=== PATIENT | male | born 1955 | race Caucasian/White ===

== ENCOUNTER 2017-02-16 00:25 | Inpatient (IN) | payer OTHER ==
[2017-02-16] VITALS (10 sets, daily range): BP systolic 84–114; BP diastolic 44–72; PULSE 56–85; RESP 15–18; O2SAT 97–100
[~2017-02-16] VITALS: Ht 180.3 cm; Wt 73.6 kg
--- NOTE | 2017-02-16 00:46 | ED.REPORT ---
HPI-General Illness Date of Service Feb 16, 2017 ED Provider: Dr. Didier Bolden The patient is a 61 year old male with a history of Crohns, [place] x2, 4x CABG, who presents to the ED via EMS complaining of dizziness. Pt was discharged yesterday from [facility], after admission for dehydration. He had an ileostomy placed on January 26, after emergency surgery for a perforation and a complete colectomy.. Associated symptoms include low blood pressure, shaking, chills, and weakness. He denies abdominal pain, fever, vomiting, diarrhea, and any other symptoms. Nursing Notes Stated Complaint: DIZZINESS/ DEHYDRATION Chief Complaint: General Complaint Nursing Notes Reviewed: Yes Allergies: Coded Allergies: levofloxacin (Verified Allergy, Mild, "pass out", 02/16/17) metronidazole (Verified Allergy, Unknown, "pass out", 02/16/17) Scheduled Cholestyramine (Cholestyramine Packet) 4 Gm Packet 4 GM PO BID Diphenoxylate/Atropine (Diphenoxylate-Atrop 2.5-0.025) 2.5 Mg Tablet 2.5 MG PO Q6 Fructooligosaccharides/Polydex (Hyfiber with Fos Liquid) 12 Gram/30 Ml Liquid 12 GM PO BID General Time Seen by MD: 00:46 Chief Complaint Dizziness Hx Obtained From: Patient Arrived By: Walk-in Sudden in Onset?: Yes Onset Occurred: Just prior to arrival Symptom Duration: Since onset Associated with: Reports: Dizziness, Weakness Pertinent Negative: Pt denies other symptoms Recent Healthcare: Recent doctor visit, Recent hospitalization, Previous surgery Similar Sx Previous: Yes Past Medical History Past Medical History 2x IN Past Surgical History iliostomy placement 4x CABG Smoking History Unknown if Ever Smoker Ambulatory Status Independent Review of Systems low blood pressure Full Review of Systems Constitutional: Reports: Chills, Weakness - generalized, Denies: Fever GI: Denies: Abdominal pain, Diarrhea, Vomiting Neurologic: Reports: Dizziness, Shaking, Weakness Complete sys rev & neg: except as marked. Physical Exam Vital Signs Vital Signs Date Time Temp Pulse Resp B/P Pulse Ox O2 Delivery O2 Flow Rate FiO2 02/16/17 02:33 72 15 84/49 99 Room Air 02/16/17 00:40 81 15 100/56 100 Room Air Initial VS: Reviewed General/Constitutional: Awake, Alert, Cooperative Head / Eyes: Atraumatic, Normocephalic, PERRL ENT: Atraumatic, Mucous membranes moist Abdomen: Atraumatic, Non-tender Upper Extremities Upper Extremity / MS: Atraumatic, Full range of motion, No deformity Wrist / Hand: Atraumatic, Full range of motion, No deformity Lower Extremity / Pelvis / MS: Atraumatic, Full range of motion, No deformity Ankle / Foot: Atraumatic, Full range of motion, No deformity Skin: Atraumatic, No rash Neurologic: Oriented X3, Speech NL Interpretation & Diagnostics Lab Results Interpretation Result Diagram: 02/16/17 0050 02/16/17 0050 Test 02/16/17 00:50 White Blood Count 10.6th/mm3 (3.8-10.1) Red Blood Count 3.22mil/mm3 (4.40-5.80) Hemoglobin 12.0g/dL (13.8-17.2) Hematocrit 33.7% (41.0-50.0) Mean Corpuscular Volume 104.7fL (81-100) Mean Corpuscular Hemoglobin 37.3pg (27.0-35.0) Mean Corpuscular Hemoglobin Concent 35.6% (32.0-37.0) Red Cell Distribution Width 16.8% (12.3-15.4) Platelet Count 337bil/L (150-400) Neutrophils (%) (Auto) 68.3% (40-74) Lymphocytes (%) (Auto) 21.0% (14-46) Monocytes (%) (Auto) 9.2% (4-12) Eosinophils (%) (Auto) 1.0% (0-5) Basophils (%) (Auto) 0.2% (0-3) Prothrombin Time 10.3sec (8.1-12.5) Prothromb Time International Ratio 0.96ratio Activated Partial Thromboplast Time 22.1sec (22.8-33.0) Sodium Level 133mEq/L (134-144) Potassium Level 3.9mEq/L (3.5-5.2) Chloride Level 102mEq/L (97-108) Carbon Dioxide Level 14mmol/L (18-29) Blood Urea Nitrogen 14mg/dL (6-24) Creatinine 1.06mg/dL (0.76-1.27) Estimat Glomerular Filtration Rate 76mL/min (>59) Glucose Level 110mg/dL (60-99) Lactic Acid Level 0.2mmol/L (0.4-2.0) Calcium Level 9.1mg/dL (8.5-10.1) Phosphorus Level 2.8mg/dL (2.5-4.9) Magnesium Level 1.6mg/dL (1.6-2.6) Total Bilirubin 0.3mg/dL (0.0-1.2) Aspartate Amino Transf (AST/SGOT) 14U/L (0-50) Alanine Aminotransferase (ALT/SGPT) 13U/L (0-44) Alkaline Phosphatase 88U/L (25-160) Total Protein 6.9g/dL (6.4-8.4) Albumin 4.0g/dL (3.4-5.0) Lipase 28U/L (13-60) Procalcitonin 0.11ng/mL (0.00-0.08) Hold [place]burn Top Tube Received (Received) Lab Results Interpretation: LABS: WBC 10.6 Re-Eval/Medical Decision Consultation : Referral / Consult Name: Desmond Jon MD Consulted With: Hospitalist Call Returned at: 02:18 Service Plumber: Agrees with eval, Agrees with plan Note: Case discussed. Dr. Zaldivar accepts admit. Counseled Regarding: Diagnosis, Lab results, Need for admission Discharge & Departure Primary Impression: Dehydration Additional Impressions: High output ileostomy Crohns disease Disposition: ADMITTED TO HOSPITAL Discharge Condition All VS Reviewed: Yes Condition: Stable Referrals: [facility] Scribe Attestation Portion of this note were transcribed by Jennifer Lowery. I, Dr. Bolden, personally performed the history, physical exam, and medical decision-making: I reviewed and confirmed the accuracy for the information in the transcribed note. Signed by: nathan Garza, 02/16/17 0500 copies to: [facility] Didier Bolden MD Feb 16, 2017 00:46 Jennifer Lowery Feb 16, 2017 00:50
[2017-02-16] MEDS ORDERED: 0.9% Sodium Chloride 1,000 ML IV SCH (00:50)
[2017-02-16 01:04] LABS: BASOPHILS % (AUTO) 0.2 % (0-3); MONOCYTES % (AUTO) 9.2 % (4-12); Mean Corpuscular Hemoglobin 37.3 pg (27.0-35.0); Mean Corpuscular Volume 104.7 fL (81-100); NEUTROPHILS % (AUTO) 68.3 % (40-74); Platelet Count 337 bil/L (150-400)
[2017-02-16 01:29] LABS: INR 0.96 ratio
[2017-02-16] MEDS ORDERED: 0.9% Sodium Chloride 1,000 ML IV ONE (01:38)
[2017-02-16 01:43] LABS: Magnesium 1.6 mg/dL (1.6-2.6)
[2017-02-16] MEDS: 0.9% Sodium Chloride 1,000 ML IV SCH ×3 (02:21→20:56)
[2017-02-16] MEDS ORDERED: Alum-Mag Hydrox-Simeth 30 mL Suspension PO PRN (02:25)
[2017-02-16] MEDS ORDERED: Polyethylene Glycol (PEG) 17 Gm Powder PO PRN (02:25)
[2017-02-16] MEDS ORDERED: Ondansetron 2 mg/mL 2 mL Inj IVPUSH PRN (02:25)
[2017-02-16 02:42] LABS: Phosphorus 2.8 mg/dL (2.5-4.9)
[2017-02-16] MEDS ORDERED: QUE9 PO (03:29)
[2017-02-16] MEDS ORDERED: LORazepam 1 mg Tablet PO ONE (03:30)
[2017-02-16] MEDS ORDERED: LOM PO (03:31)
[2017-02-16] MEDS ORDERED: [UNRECOGNIZED DRUG - CODE] PO (03:32)
--- NOTE | 2017-02-16 03:38 | PCM.HPMED ---
Subjective Date of Service Feb 16, 2017 Primary Provider: Admitting Physician: Primary Care Physician: Rylie Attending Physician: Chief Complaint: Dehydration History of Present Illness: David Longo is a 61-year-old man with past medical history significant for Crohn's disease for the last 25 years now status post ileostomy, coronary artery disease with MIs and 4 vessel bypass and stenting who presented to the [facility] emergency department today via EMS due to a near syncopal episode. Patient was just at [facility] for high output ileostomy and subsequent dehydration for 11 days. Patient was discharged yesterday and felt at the time that he was not quite ready for discharge. Patient arrived home today and was feeling fatigued and thirsty but attempted to hydrate with Pedialyte. This evening the patient was changing his ostomy bag and had a vasovagal episode as he is not used to viewing his ostomy. Patient normally changes his ostomy while laying down but today she attempted to change it while looking in the mirror and became very hot, diaphoretic and weak. Patient sat down and was able to replace his ostomy device asked his mother to call EMS. He denied any chest pain, chest pressure, shortness of breath, nausea, vomiting , fever or chills. In the emergency department the patient's blood pressure was noted to be 100/ 56. He was given 2 L of normal saline. Review of Systems: A comprehensive review of systems was conducted with the patient and found to be negative except as above in the History of Present Illness. Allergies Coded Allergies: levofloxacin (Verified Allergy, Mild, "pass out", 02/16/17) metronidazole (Verified Allergy, Unknown, "pass out", 02/16/17) Home Medications Cholestyramine 4 g twice a day Lomotil 2 tabs by mouth 4 times a day Fiber packet one twice a day Guar gum pack Imodium 4 times a day Atorvastatin 40 mg nightly Clopidogrel 75 mg daily Lisinopril 10 mg daily Lorazepam 2 mg at bedtime Mercaptopurine 100 mg every day Metoprolol XL 25 mg daily PMH CAD MO x2 with four-vessel CABG which then required subsequent stenting in the graft vessels in 2013. Crohn's disease for last 25 years. Patient had a significant worsening of his disease 2 years ago which was complicated by multiple recurrent abscesses and ultimately end ileostomy. Surgical History Ileostomy placement Four-vessel CABG Family History Father had a CVA which was the cause of his . Social History Hx Alcohol Use: No Hx Substance Use: No Hx Tobacco Use: No Smoking Status: Unknown if Ever Smoker Additional Information Patient underwent financial ruin after divorce with his of 35 years. This occurred 4 years ago. The cause of this event caused patient's health to significantly decline which was first materialized as a myocardial infarction. And then a worsening of the patient's Crohn's disease which had previously been in remission. Exam Vital Signs Vital Sign - Last Date Time Temp Pulse Resp B/P Pulse Ox O2 Delivery O2 Flow Rate FiO2 02/16/17 00:40 81 15 100/56 100 Room Air Intake and Output 02/15/17 02/15/17 02/16/17 Cumulative From/Thru 15:00 23:00 07:00 02/16/17 00:40 - 02/16/17 01:18 Intake Total 1000 ml 1000 ml Balance 1000 ml 1000 ml Intake IV Total 1000 ml 1000 ml Exam General: No acute distress, well-developed, well-nourished, appropriately interactive HEENT: Normocephalic, atraumatic. External ears without defect. Pupils equal, round, and reactive to light and accommodation. Anicteric sclerae, moist conjunctivae, and no lid lag. Oropharynx free of erythema and cobble stoning with moist mucosa. Neck: Supple with full range of motion. No jugular venous distension. No lymphadenopathy or thyromegaly. Cardiovascular: Regular rate and rhythm with no murmurs, rubs, or gallops appreciated Pulmonary: Clear to auscultation bilaterally with no crackles, wheezes, or rhonchi. Normal respiratory effort with no use of accessory muscles. Abdomen: Bowel tones present. Soft, nontender, nondistended. Right lower quadrant ostomy with liquid output in a nearly full bag. No hepatosplenomegaly or masses appreciated. Extremities: No clubbing, cyanosis, edema, or lymphadenopathy appreciated. Skin: Normal temperature, turgor, and texture; no rash, ulcers, or subcutaneous nodules appreciated. Neurological: Cranial nerves grossly intact. Normal muscle strength, tone, and bulk. Reflexes, coordination, and sensory function within normal limits. No known gait impairment. Psychiatric: Appears depressed however is quite pleasant and cooperative Alert and oriented to person, place, and time. Lab and Diagnostics Result Diagram: 02/16/174902/16/170 Assessment & Plan David Longo is a 61-year-old man with past medical history significant for Crohn's disease for the last 25 years now status post ileostomy, coronary artery disease with MIs and 4 vessel bypass and stenting who presented to the [facility] emergency department today via EMS due to a near syncopal episode. Near syncopal episode, present on admission, active -Multifactorial, due to vasovagal response as well as orthostasis from patient' s severe dehydration due to high output ostomy -Fall risk -We will order orthostatic blood pressure measurements High anion gap metabolic acidosis and concomitant non-anion gap metabolic acidosis, present on admission, active -Likely secondary to GI losses -Continue with aggressive IV fluid hydration -Dietary consultation obtained -We will restart patient's antidiarrheal medications High output ileostomy, present on admission, active -Patient had ileostomy placed on January 27. Anticipate that output will reduce over time. -Continue aggressive IV fluid resuscitation -Dietary consultation -Antidiarrheal medications reordered -Continue patient's fiber supplementation Macrocytic anemia, present on admission, active -With an elevated RDW likely due to multiple vitamin deficiencies given patient' s Crohn's disease -Continue to monitor -Consider iron panel and B12 and folate if the patient has not had this done recently. Chronic issues, present on admission, stable: Coronary artery disease status post CABG and stenting -Continue patient's outpatient medications Anxiety/insomnia -Continue outpatient lorazepam Social support -Consider contacting our fretted instruments inspector to visit the patient. CODE STATUS: Full code Patient is admitted under observation status with expected length of stay less than 2 midnights due to severity of presenting symptoms, risk of adverse event, and complexity of treatment plan. VTE Prophylaxis: Sub-Q Heparin (Unfractionated) Resuscitation Status: CPR: Attempt Resuscitation Attending Statement The patient was seen and examined together with Dr. Washington on 02/16 and I agree with the history, exam and plan as outlined in the note above. Alma Washington DO Feb 16, 2017 02:24 Desmond Jon MD Feb 16, 2017 06:11
[2017-02-16] MEDS: DiphenOXYlate-Atropine 2.5 mg-0.025 mg Tablet PO SCH ×4 (05:29→20:55)
[2017-02-16 05:41] LABS: APPEARANCE,URINE CLEAR (CLEAR,HAZY); COLOR,URINE YELLOW (YELLOW); OCCULT BLOOD,URINE NEGATIVE (NEGATIVE); UROBILINOGEN,URINE NORMAL (NORMAL)
[2017-02-16] MEDS ORDERED: GUAR1POW PO (05:54)
[2017-02-16] MEDS ORDERED: LOPE1LIQ80 PO (05:55)
[2017-02-16] MEDS ORDERED: LIP40 PO (05:57)
[2017-02-16] MEDS ORDERED: LISI10TA PO (05:58)
[2017-02-16] MEDS ORDERED: CLOP75TA28 PO (05:58)
[2017-02-16] MEDS ORDERED: LORA2TAB PO (06:02)
[2017-02-16] MEDS ORDERED: MERC50TA PO (06:03)
[2017-02-16] MEDS ORDERED: METO25TA99 PO (06:05)
--- NOTE | 2017-02-16 06:42 | NUR ---
Pt rec'd from ED at 0230. Denies pain/discomfort, ileostomy producing liquid green stool. VSS, bed rest for hypotension. Urine collected and sent for analysis. Med rec completed. Sinus 80's no ectopy, denies SOB, maintains 98% on room air. L PIVx2 patent, no s/s infiltration or phlebitis noted. Pt slept between 3-6:45 today. Care continues.
[2017-02-16 08:14] LABS: BASOPHILS % (AUTO) 0.5 % (0-3); MONOCYTES % (AUTO) 8.5 % (4-12); Mean Corpuscular Hemoglobin 37.4 pg (27.0-35.0); Mean Corpuscular Volume 105.9 fL (81-100); NEUTROPHILS % (AUTO) 55.6 % (40-74); Platelet Count 282 bil/L (150-400)
[2017-02-16] MEDS: Heparin 5,000 Unit/mL Inj SUBQ SCH ×4 (08:30→20:58)
[2017-02-16 09:10] LABS: Magnesium 1.6 mg/dL (1.6-2.6); Phosphorus 3.4 mg/dL (2.5-4.9)
--- NOTE | 2017-02-16 10:09 | NUR ---
Social Work: Initial Assessment/Multidisciplinary Rounds D: Per EMR review, pt is a 61 year old male admitted for dehydration, high output ileostomy. Pt is [employer] insurance with no LTC or VA benefits. PCP is Katie Burris MD. NOK is Shayna Longo, mother, . Advanced directives not completed- pt declined info. Readmit score not entered at this time. Pt discussed in multidisciplinary rounds. Pt was discharged from [facility] on 02/14 home with [facility] for RN management of his Ileostomy. Pt anticipated to discharge back home with resumed HH through [facility] for RN care. Capacity for self care discussed. No concerns identified at this time. PRIVATE INVESTIGATOR met with the patient at bedside. Sw role explained, contact info and discharge planning checklist provided. Pt states that he lives in a single story home in [place] with ramp access. Pt confirms that he was referred to [facility] but they had not yet come to see him at home. He would like to continue with this service after discharge. Preference is for [facility]. Pt states he has never had skilled rehab and does not drive. Pt states he has no concerns about discharge home once medically stable. His mother will transport. t/c to [facility] with [facility] to notify of pt's admission; PRIVATE INVESTIGATOR has requested resumption of care orders and will provide access to [facility] once order is received from MD. A: Pt who is I at baseline. P: Anticipate pt to discharge home via POV and resumed [facility] for RN care. ALIA Cook Addendum: 02/16/17 at 1016 by ELLI HAMILTON Amended: Links added.
[2017-02-16] MEDS: Cholestyramine Resin Powder 4 Gm Packet PO SCH ×2 (10:11→23:12)
--- NOTE | 2017-02-16 11:28 | NUR ---
Case Management: Clarification of patient status: observation per MD order. Jorge Montero RN
--- NOTE | 2017-02-16 16:21 | PCM.PNMED ---
Subjective Date of Service Feb 16, 2017 Subjective Assessment: Patient laying in bed on exam. Appears fatigued however not somnolent. We discussed at length the patient's medical history and our plans for his stay here in hospital. Events Overnight: No acute events overnight. ROS: Complains of generalized fatigue, mild abdominal pain at surgery incision sites. Denies fever/chills, nausea/vomiting, headache, weakness, chest pain, shortness of breath, increased swelling in hands or feet. Exam Vital Signs Vital Sign - Last Date Time Temp Pulse Resp B/P Pulse Ox O2 Delivery O2 Flow Rate FiO2 02/16/17 12:00 37.1 61 16 91/51 98 Room Air Intake and Output 02/15/17 02/15/17 02/16/17 Cumulative From/Thru 15:00 23:00 07:00 02/16/17 00:40 - 02/16/17 06:35 Intake Total 1366 ml 1366 ml Output Total 900 ml 900 ml Balance 466 ml 466 ml Intake Oral 100 ml 100 ml IV Total 1266 ml 1266 ml Output Urine Total 275 ml 275 ml Stool Total 625 ml 625 ml Exam General: No acute distress, well-developed, well-nourished HEENT: Normocephalic, atraumatic. External ears without defect. Pupils equal, round, and reactive to light and accommodation. Anicteric sclerae, moist conjunctivae. Cardiovascular: Regular rate and rhythm with no murmurs, rubs, or gallops appreciated Pulmonary: Clear to auscultation bilaterally with no crackles, wheezes, or rhonchi. Normal respiratory effort with no use of accessory muscles. Abdomen: Bowel tones decreased. Soft, nontender, nondistended. Ostomy present- ostomy bag half-full with gas and green liquid fluid. Extremities: No clubbing, cyanosis, edema Skin: Normal temperature, turgor, and texture; no rash, ulcers, or subcutaneous nodules appreciated. Neurological: Cranial nerves grossly intact. Reflexes, coordination, and sensory function within normal limits. Normal muscle strength, tone, and bulk. Psychiatric: Normal mood and affect. Alert and oriented to person, place, and time IVs and Medications IV Fluids 2 L normal saline Medications Reviewed: Medications were reviewed in detail Lab and Diagnostics Result Diagram: 02/16/17 1235 02/16/17 0746 Microbiology Blood cultures pending 2 Assessment & Plan David Longo is a 61-year-old man with past medical history significant for Crohn's disease for the last 25 years now status post ileostomy (January 27, 2017), coronary artery disease with MIs and 4 vessel bypass and stenting who presented to the [facility] emergency department today via EMS due to a near syncopal episode. Near syncopal episode, present on admission, active -Multifactorial, due to vasovagal response as well as orthostasis from patient' s severe dehydration due to high output ostomy -Fall risk - Blood pressures remain low despite aggressive fluid therapy, continue to monitor High anion gap metabolic acidosis and concomitant non-anion gap metabolic acidosis, present on admission, active -Likely secondary to GI losses -Continue with aggressive IV fluid hydration -Dietary consultation obtained -Antidiarrheal medications restarted High output ileostomy, present on admission, active -Patient had ileostomy placed on January 27. Anticipate that output will reduce over time. -Continue aggressive IV fluid resuscitation -Dietary consultation -Antidiarrheal medications reordered -Continue patient's fiber supplementation Macrocytic anemia, present on admission, active - With an elevated RDW likely due to multiple vitamin deficiencies given patient 's Crohn's disease - Hemoglobin initially 12.0, dropped to 9.5 over a period of 8 hours. H&H was redrawn 4 hours later and blood counts continue to decline to 9.2. - If blood loss continues consider CT abdomen - If hemoglobin <8.00 consider transfusion PRBCs - Continue to monitor - B12 and folate panels ordered pending Chronic issues, present on admission, stable: Coronary artery disease status post CABG and stenting -Continue patient's outpatient medications Anxiety/insomnia -Continue outpatient lorazepam Social support -Consider contacting our carton lettering machine operator to visit the patient. CODE STATUS: Full code Dispo: Patient will remain in hospital until fluid status improves, I expect this to be anywhere between 1-3 days Pain Evaluation: Adequate Pain Control VTE Prophylaxis: Sub-Q Heparin (Unfractionated) Resuscitation Status: CPR: Attempt Resuscitation Attending Statement The patient was seen and examined together with Dr. Stevens on 02/16/17 and I agree with the history, exam and plan as outlined in the note above. Lew Stevens DO Feb 16, 2017 16:21 Rita Arboleda DO Feb 17, 2017 14:41
--- NOTE | 2017-02-16 17:47 | NUR ---
spiritual care: provider referral brief conversational visit. pt said he had been quite sleepy. described medical events and his sense of resiliency as personal trait. awaiting dinner tray; appeared calm/comfortable.
--- NOTE | 2017-02-16 18:46 | NUR ---
Hypotension/Ileostomy Patient a/o x 3, denies pain, nausea or sob. SBP 90's, MD aware no new orders this shift. Patient remained on bedrest, declined getting oob this shift. Sleeping intermittently throughout the shift. Tele SR. Ileostomy putting out soft liq green stool. Judy diet well.
[2017-02-17] VITALS (7 sets, daily range): BP systolic 103–127; BP diastolic 66–75; PULSE 56–73; RESP 16–18; O2SAT 96–98
[2017-02-17] MEDS ORDERED: LORazepam 2 mg Tablet PO ONE
[2017-02-17] MEDS: LORazepam 2 mg Tablet PO SCH ×2 (00:05→21:02)
[2017-02-17] MEDS: DiphenOXYlate-Atropine 2.5 mg-0.025 mg Tablet PO SCH ×4 (03:53→21:02)
[2017-02-17 07:03] LABS: BASOPHILS % (AUTO) 0.3 % (0-3); EOSINOPHILS % (AUTO) 1.6 % (0-5); MONOCYTES % (AUTO) 9.2 % (4-12); Mean Corpuscular Volume 107.3 fL (81-100); NEUTROPHILS % (AUTO) 59.8 % (40-74); Platelet Count 268 bil/L (150-400)
--- NOTE | 2017-02-17 07:57 | NUR ---
GI High Output Ileostomy putting out light green loose stool in large amounts. 1050cc charted. Per ILLUMINATOR, the last time emptied stool was more liquid than before. Pt urinating per urinal, NS fluids continue, SBP 90s-100s. Pt refused Heparin. Requested Ativan to sleep d/t insomnia, notified and ordered this. Lab was asked not to come until after 0700 per pt request. Care clustered to promote sleep.
[2017-02-17] MEDS: 0.9% Sodium Chloride 1,000 ML IV SCH ×2 (08:33→17:53)
[2017-02-17] MEDS: Cholestyramine Resin Powder 4 Gm Packet PO SCH ×2 (08:33→19:50)
[2017-02-17] MEDS: Heparin 5,000 Unit/mL Inj SUBQ SCH ×3 (08:41→16:30)
--- NOTE | 2017-02-17 18:18 | NUR ---
Activity/Ileostomy: Encouraged patient to increase activity and sit in chair for meals. Patient declined and stated he wasn't up to it and would attempt to sit up in chair for for meals tomorrow. Total ileostomy output for day shift = 500 of soft bermeo/green stool.
--- NOTE | 2017-02-17 19:36 | PCM.PNMED ---
Subjective Date of Service Feb 17, 2017 Subjective Assessment: Patient lying in bed on physical exam. I had a long discussion today with patient and his mother who was in the room. Patient described frustrations with his current situation, including feeling helpless and discouraged at having to stay so much time in the hospital. He states that he was initially unwilling to go through the ileostomy procedure and had hoped for some complication such that he would not be subjected to the difficulties of post procedural life. He describes great frustration with trying to fill prescribed medications especially ostomy bags. He asked me if Spence was a " with dignity state" stating that he did not wish to continue medical treatment, except that he knows this would bring great sadness to his mother. He is not currently suicidal, however he is obviously depressed and frustrated with his current situation. Both him and his mother expressed concerns about early discharge. We discussed the possibility of SNF placement post hospital stay, however in his current depressed state he was not excited about this option. Events Overnight: No acute events overnight. ROS: Complains of weakness, fatigue. Denies fever/chills, nausea/vomiting, headache, weakness, abdominal pain, chest pain, shortness of breath, increased swelling in hands or feet. Exam Vital Signs Vital Sign - Last Date Time Temp Pulse Resp B/P Pulse Ox O2 Delivery O2 Flow Rate FiO2 02/17/17 16:52 36.9 63 18 123/73 96 Room Air Intake and Output 02/16/17 02/16/17 02/17/17 Cumulative From/Thru 15:00 23:00 07:00 02/16/17 00:40 - 02/17/17 05:28 Intake Total 2046 ml 650 ml 4062 ml Output Total 1325 ml 2050 ml 4275 ml Balance 721 ml -1400 ml -213 ml Intake Oral 872 ml 650 ml 1622 ml IV Total 1174 ml 2440 ml Output Urine Total 1050 ml 1000 ml 2325 ml Stool Total 275 ml 1050 ml 1950 ml Exam General: No acute distress, well-developed, well-nourished HEENT: Normocephalic, atraumatic. External ears without defect. Pupils equal, round, and reactive to light and accommodation. Anicteric sclerae, moist conjunctivae. Cardiovascular: Regular rate and rhythm with no murmurs, rubs, or gallops appreciated Pulmonary: Clear to auscultation bilaterally with no crackles, wheezes, or rhonchi. Normal respiratory effort with no use of accessory muscles. Abdomen: Bowel tones present. Soft, nontender, nondistended. Extremities: No clubbing, cyanosis, edema Skin: Normal temperature, turgor, and texture; no rash, ulcers, or subcutaneous nodules appreciated. Neurological: Cranial nerves grossly intact. Reflexes, coordination, and sensory function within normal limits. Normal muscle strength, tone, and bulk. Psychiatric: Normal mood and affect. Alert and oriented to person, place, and time IVs and Medications IV Fluids General: No acute distress, well-developed, well-nourished HEENT: Normocephalic, atraumatic. External ears without defect. Pupils equal, round, and reactive to light and accommodation. Anicteric sclerae, moist conjunctivae. Cardiovascular: Regular rate and rhythm with no murmurs, rubs, or gallops appreciated Pulmonary: Clear to auscultation bilaterally with no crackles, wheezes, or rhonchi. Normal respiratory effort with no use of accessory muscles. Abdomen: Bowel tones decreased. Soft, nontender, nondistended. Ostomy present- ostomy bag half-full with gas and green liquid fluid. Extremities: No clubbing, cyanosis, edema Skin: Normal temperature, turgor, and texture; no rash, ulcers, or subcutaneous nodules appreciated. Neurological: Cranial nerves grossly intact. Reflexes, coordination, and sensory function within normal limits. Normal muscle strength, tone, and bulk. Psychiatric: Normal mood and affect. Alert and oriented to person, place, and time Medications Reviewed: Medications were reviewed in detail Medications High-risk medications include: Lorazepam Lab and Diagnostics Result Diagram: 02/17/17 0650 02/17/17 0650 Microbiology Blood cultures 2 no growth after 24 hours Assessment & Plan David Longo is a 61-year-old man with past medical history significant for Crohn's disease for the last 25 years now status post ileostomy (January 27, 2017), coronary artery disease with MIs and 4 vessel bypass and stenting who presented to the [facility] emergency department on 02/16 via EMS due to a near syncopal episode. Near syncopal episode, present on admission, active - Multifactorial, due to vasovagal response as well as orthostasis from patient' s severe dehydration due to high output ostomy - Fall risk - Blood pressures remain low despite aggressive fluid therapy, continue to monitor - Ostomy putting out brown liquid 02/17 as compared to 02/16, green liquid, and previous to that yellow liquid. High anion gap metabolic acidosis and concomitant non-anion gap metabolic acidosis, present on admission, active -Likely secondary to GI losses -Continue with aggressive IV fluid hydration -Dietary consultation obtained -Antidiarrheal medications restarted High output ileostomy, present on admission, active -Patient had ileostomy placed on January 27. Anticipate that output will reduce over time, and stools will become better formed with antidiarrheal medication. -Continue aggressive IV fluid resuscitation -Dietary consultation -Antidiarrheal medications reordered -Continue patient's fiber supplementation Macrocytic anemia, present on admission, active - With an elevated RDW possibly due to multiple vitamin deficiencies given patient's Crohn's disease - Hemoglobin initially 12.0, dropped to 9.5 over a period of 8 hours. H&H has remained stable since that time. Likely dilutional. - Continue to monitor - B12 and folate panels show normal levels of vitamin B12 and folate. Chronic issues, present on admission, stable: Coronary artery disease status post CABG and stenting -Continue patient's outpatient medications Anxiety/insomnia -Continue outpatient lorazepam Social support -Printed Circuit Board Assembler contacted to visit the patient, however patient does not want spiritual consults at this time. - I suggested to the patient that he would benefit from outpatient psych, for his depression to work through multiple issues which have occurred in the last 4.5 years. It appears that many of his current ailments can be attributed to his emotional distress over these recent events. At the moment he is unwilling to participate in any outpatient evaluation by psych, however he did state that he would think about it. Of note: I had a long discussion today with patient and his mother who was in the room. Patient described frustrations with his current situation, including feeling helpless and discouraged at having to stay so much time in the hospital. He states that he was initially unwilling to go through the ileostomy procedure and had hoped for some complication such that he would not be subjected to the difficulties of post procedural life. He describes great frustration with trying to fill prescribed medications especially ostomy bags. He asked me if Spence was a " with dignity state" stating that he did not wish to continue medical treatment, except that he knows this would bring great sadness to his mother. He is not currently suicidal, however he is obviously depressed and frustrated with his current situation. Both him and his mother expressed concerns about early discharge. We discussed the possibility of SNF placement post hospital stay, however and his current depressed state he was not excited about this option. CODE STATUS: Full code Dispo: Patient will remain in hospital until fluid status improves, I expect this to be anywhere between 1-3 days VTE Prophylaxis: Sub-Q Heparin (Unfractionated) Resuscitation Status: CPR: Attempt Resuscitation Time spent 60 minutes Attending Statement The patient was seen and examined together with Dr. Stevens on 02/17/17 and I agree with the history, exam and plan as outlined in the note above. Lew Stevens DO Feb 17, 2017 19:36 Rita Arboleda DO Feb 18, 2017 11:09
[2017-02-18] VITALS (10 sets, daily range): BP systolic 105–123; BP diastolic 63–81; PULSE 52–69; RESP 14–20; O2SAT 96–99
[2017-02-18] MEDS: Heparin 5,000 Unit/mL Inj SUBQ SCH ×3 (00:30→15:31)
[2017-02-18] MEDS: DiphenOXYlate-Atropine 2.5 mg-0.025 mg Tablet PO SCH ×4 (02:42→21:28)
[2017-02-18] MEDS: 0.9% Sodium Chloride 1,000 ML IV SCH ×3 (02:42→23:17)
--- NOTE | 2017-02-18 06:44 | NUR ---
Rest/Ileostomy Patient requesting to be allowed to sleep for longer stretches overnight. Care clustered to encourage better sleep. Approximately 350 soft greenish stool output in ileostomy.
[2017-02-18 07:38] LABS: Mean Corpuscular Hemoglobin 36.8 pg (27.0-35.0); Mean Corpuscular Volume 105.6 fL (81-100)
[2017-02-18] MEDS: Cholestyramine Resin Powder 4 Gm Packet PO SCH ×2 (07:48→21:28)
[2017-02-18] MEDS: Lidocaine Topical 5% Patch TOPICAL SCH (12:09)
--- NOTE | 2017-02-18 14:14 | PCM.PNMED ---
Subjective Date of Service Feb 18, 2017 Subjective Patient states that he feels well this AM. Ostomy continues significant output decreased in magnitude and more formed than previously. Otherwise states that he is well, denies chest pain, SOB, nausea, or vomiting. No significant overnight events. Comprehensive ROS negative except as listed above. Exam Vital Signs Vital Sign - Last Date Time Temp Pulse Resp B/P Pulse Ox O2 Delivery O2 Flow Rate FiO2 02/18/17 12:42 36.6 59 20 110/70 98 Room Air Intake and Output 02/17/17 02/17/17 02/18/17 Cumulative From/Thru 15:00 23:00 07:00 02/16/17 00:40 - 02/18/17 06:47 Intake Total 1305 ml 1300 ml 1575 ml 8242 ml Output Total 2300 ml 2800 ml 9375 ml Balance 1305 ml -1000 ml -1225 ml -1133 ml Intake Oral 740 ml 318 ml 2680 ml IV Total 1305 ml 560 ml 1257 ml 5562 ml Output Urine Total 1800 ml 2450 ml 6575 ml Stool Total 500 ml 350 ml 2800 ml Emesis 0 ml 0 ml Exam Gen: A/O x3 pleasant cooperative gentleman in NAD Neck: Supple, non tender, no thyromegaly, no JVD HEENT: PERRL, EOMI, no scleral icterus, no conjunctival pallor CV: RRR, no murmurs rubs or gallops Resp: Lungs CTA BL, no wheezing rales or rhonchi Abd: Soft, ostomy with a moderate amount of brown semi-formed stool Extr: No clubbing cyanosis or edema Neuro: CN 2-12 grossly intact, no focal neurologic deficit Psych: Pleasant and appropriate mood and affect. IVs and Medications IV Fluids NS @ 100 ml hr Medications Reviewed: Medications were reviewed in detail Lab and Diagnostics Item Value Date Time Red Blood Count 2.85 mil/mm3 L 02/18/17 0725 Mean Corpuscular Volume 105.6 fL H 02/18/17 0725 Mean Corpuscular Hemoglobin 36.8 pg H 02/18/17 0725 Mean Corpuscular Hemoglobin Concent 34.9 % 02/18/17 0725 Red Cell Distribution Width 16.3 % H 02/18/17 0725 Estimat Glomerular Filtration Rate 108 mL/min 02/18/17 0725 Calcium Level 8.6 mg/dL 02/18/17 07 Total Bilirubin 0.3 mg/dL 02/18/17 0725 Aspartate Amino Transf (AST/SGOT) 14 U/L 02/18/17 07 Alanine Aminotransferase (ALT/SGPT) 10 U/L 02/18/17 0725 Total Protein 5.3 g/dL L 02/18/17 0725 Alkaline Phosphatase 74 U/L 02/18/17 0725 Albumin 3.3 g/dL L 02/18/17 07 Result Diagram: 02/18/1772402/18/17 07 Microbiology Blood cultures 2 no growth after 24 hours Assessment & Plan David Longo is a 61-year-old man with past medical history significant for Crohn's disease for the last 25 years now status post ileostomy (January 27, 2017), coronary artery disease with MIs and 4 vessel bypass and stenting who presented to the [facility] emergency department on 02/16 via EMS due to a near syncopal episode. Near syncopal episode, present on admission,Improved - Multifactorial, due to vasovagal response as well as orthostasis from patient' s severe dehydration due to high output ostomy - Fall risk - Ostomy putting out brown liquid 02/17 as compared to 02/16, green liquid, and previous to that yellow liquid. Returned to brown 02/18 High anion gap metabolic acidosis and concomitant non-anion gap metabolic acidosis, present on admission, Improved -Likely secondary to GI losses -Continue with aggressive IV fluid hydration -Dietary consultation obtained -Antidiarrheal medications restarted High output ileostomy, present on admission, active -Patient had ileostomy placed on January 27. Anticipate that output will reduce over time, and stools will become better formed with antidiarrheal medication. -Continue aggressive IV fluid resuscitation -Dietary consultation -Antidiarrheal medications reordered -Continue patient's fiber supplementation Macrocytic anemia, present on admission, active - With an elevated RDW possibly due to multiple vitamin deficiencies given patient's Crohn's disease - Hemoglobin initially 12.0, dropped to 9.5 over a period of 8 hours. H&H has remained stable since that time. Likely dilutional. - Continue to monitor - B12 and folate panels show normal levels of vitamin B12 and folate. Chronic issues, present on admission, stable: Coronary artery disease status post CABG and stenting -Continue patient's outpatient medications Anxiety/insomnia -Continue outpatient lorazepam Social support -[employer] Architect contacted to visit the patient, however patient does not want spiritual consults at this time. - I suggested to the patient that he would benefit from outpatient psych, for his depression to work through multiple issues which have occurred in the last 4.5 years. It appears that many of his current ailments can be attributed to his emotional distress over these recent events. At the moment he is unwilling to participate in any outpatient evaluation by psych, however he did state that he would think about it. Of note: Goals of care were discussed with the patient and his mother who was in the room. Patient described frustrations with his current situation, including feeling helpless and discouraged at having to stay so much time in the hospital. He states that he was initially unwilling to go through the ileostomy procedure and had hoped for some complication such that he would not be subjected to the difficulties of post procedural life. He describes great frustration with trying to fill prescribed medications especially ostomy bags. He asked me if Spence was a " with dignity state" stating that he did not wish to continue medical treatment, except that he knows this would bring great sadness to his mother. He is not currently suicidal, however he is obviously depressed and frustrated with his current situation. Both him and his mother expressed concerns about early discharge. We discussed the possibility of SNF placement post hospital stay, however and his current depressed state he was not excited about this option. CODE STATUS: Full code Dispo: Patient will remain in hospital until fluid status improves, I expect this to be anywhere between 1-3 days Pain Evaluation: Adequate Pain Control VTE Prophylaxis: Sub-Q Heparin (Unfractionated) Resuscitation Status: CPR: Attempt Resuscitation Urban Gabriel DO Feb 18, 2017 14:14
[2017-02-18] MEDS: LORazepam 2 mg Tablet PO SCH (21:28)
--- NOTE | 2017-02-19 00:12 | NUR ---
orthostatics lying:hr=68, me=882/76 sitting :hr=78, qo=850/98 lying:hr=96, rd=270/100
--- NOTE | 2017-02-19 00:18 | NUR ---
output, pt voiding well per urinal, yellow uop, pt able to take po fluids ok, md aware of no ivf per report but still on sep, md aware of pt's uop/orthostatics/po intake and output per illeostomy, pt still putting out mod to large amount per ileostomy, ivf continued at 100ml/hr, sba at bedside, pt feels slightly unsteady on his feet, bp stable, tele- sr, hr 60-90, occ pac, denies cp denies n /v, hyperactive bt's, ileostomy bag in place, surgical sites well approximated, denies sob, ls-clear, ra sats upper 90's, see assessment charting, report given to next rn at 0015,
[2017-02-19] MEDS: Heparin 5,000 Unit/mL Inj SUBQ SCH ×4 (00:30→21:52)
[2017-02-19 03:53] VITALS: BP 109/73; PULSE 56; RESP 20; O2SAT 98
[2017-02-19] MEDS: DiphenOXYlate-Atropine 2.5 mg-0.025 mg Tablet PO SCH ×4 (03:54→22:05)
[2017-02-19 07:48] LABS: BASOPHILS % (AUTO) 0.4 % (0-3); EOSINOPHILS % (AUTO) 2.8 % (0-5); MONOCYTES % (AUTO) 7.6 % (4-12); Mean Corpuscular Hemoglobin 36.9 pg (27.0-35.0); Mean Corpuscular Volume 104.7 fL (81-100); NEUTROPHILS % (AUTO) 56.7 % (40-74); Platelet Count 262 bil/L (150-400)
[2017-02-19 08:03] LABS: Magnesium 1.7 mg/dL (1.6-2.6)
[2017-02-19] MEDS: 0.9% Sodium Chloride 1,000 ML IV SCH ×3 (09:15→21:46)
[2017-02-19] MEDS: Cholestyramine Resin Powder 4 Gm Packet PO SCH ×2 (09:18→21:51)
[2017-02-19] MEDS: Lidocaine Topical 5% Patch TOPICAL SCH (09:18)
[2017-02-19 10:00] VITALS: PULSE 52
[2017-02-19 12:27] VITALS: BP 112/70; PULSE 64; RESP 20; O2SAT 98
--- NOTE | 2017-02-19 16:26 | NUR ---
Social Work Note: Continued Discharge Planning Data& Assessment: Pt had questions about Home Health Status. Denise spoke with Bryanna from [facility] who explained they were not able to provide services to pt and are not currently open with pt, and will not be able to open with pt. Sw spoke with who explained pt needs are unclear at this time. Pt still recieving IV fluids. [employer] insurance information provided to pt mother per her request. Pt and pt mother deny any other needs at this time. SW to continue to follow. Plan: Anticipated discharge home with another home health company vs. outpt wound care clinic follow up. Pt and pt mother deny any other needs at this time. SW to continue to follow. ALIA Mcduffie
[2017-02-19 16:35] VITALS: BP 135/87; PULSE 63; RESP 18; O2SAT 98
--- NOTE | 2017-02-19 18:08 | NUR ---
Output Iliostomy output thus far on day shift: 280mL brown loose/chunky.
--- NOTE | 2017-02-19 18:10 | PCM.CHPMED ---
Subjective Date of Service: Feb 19, 2017 Provider requesting consult: Lew Stevens DO Primary Physician: Admitting Physician: Desmond Jon MD Primary Care Physician: Rylie Attending Physician: Rita Arboleda DO Chief Complaint: Chief Complaint: High output from ostomy causing fainting spell History of Present Illness: David Longo is a 61-year-old male with past medical history significant for Crohn's disease status post recent diverting ileostomy, coronary artery disease with MIs and 4 vessel bypass and stenting who presented to [facility] ED due to a near syncopal episode. Prior to this hospitalization patient has been hospitalized at [facility] 2 times over the last month. Initial hospitalization was for a perforated bowel secondary to abscess that he believes is due to his Crohn's disease. This is questionable as the patient also indicates that his Crohn's disease has been in remission over the last 8-10 years. It may be more likely that his abscess and perforated bowel or secondary to diverticulitis. At this time it is not imperative to know the inciting event and we are working on obtaining records. Subsequent to the perforation patient had a diverting ileostomy completed on 01/27/[address] Eber Brown ([phone]). Patient has had high output from ostomy consequently causing readmission to [facility] shortly after discharge. During his second hospitalization he was found to have renal failure with an elevated potassium in low magnesium and required urgent dialysis. Patient was then discharged on 02/15/[address] the [facility] so that his mother could care for him. Shortly after arrival at his mother's house he began to feel fatigued, thirsty, and lightheaded and attempted to hydrate with Pedialyte. Later that evening he was changed and his ostomy and had a vasovagal episode which prompted his presentation to the ED. Of note, the patient states that the plan, per Dr. Brown, is for contrast enema in approximately 3 weeks to evaluate for any further leakage and determine if he is appropriate for takedown of ostomy. Upon discharge from [facility] for high output ileostomy he was told to take cholestyramine 4 g twice a day, Lomotil 4 times a day, Imodium 4 times a day, and Guar gum twice a day. Prior to ileostomy and bowel perforation patient was maintained on 6-mercaptopurine for the last 8-10 years and was told he was in remission from his Crohn's. He had been following with Dr. Kelly, GI, but due to insurance he recently switched to physician in [facility]. His primary care providers Dr. Darryl Johnson whose phone number is [phone]. Today the patient is sitting up in bed and denies any dizziness or lightheadedness. He does feel weak and continually thirsty. Ostomy had a total of 650 mL out yesterday and today a subsequent 370 mL. Review of Systems: Comprehensive review of systems was conducted with the patient and found to be negative except as noted above in HPI. PMH Past Medical History CAD [place] x2 with four-vessel CABG which then required subsequent stenting in the graft vessels in 2013. Crohn's disease for last 25 years. Patient had a significant worsening of his disease 2 years ago which was complicated by multiple recurrent abscesses and ultimately end ileostomy. Surgical History Ileostomy placement Four-vessel CABG Home Medications Cholestyramine 4 g twice a day Lomotil 2 tabs by mouth 4 times a day Fiber packet one twice a day Guar gum pack Imodium 4 times a day Atorvastatin 40 mg nightly Clopidogrel 75 mg daily Lisinopril 10 mg daily Lorazepam 2 mg at bedtime Mercaptopurine 100 mg every day Metoprolol XL 25 mg daily Allergies: Coded Allergies: levofloxacin (Verified Allergy, Mild, "pass out", 02/16/17) metronidazole (Verified Allergy, Unknown, "pass out", 02/16/17) Family History Family History Father had a CVA which was the cause of his . Social History Hx Alcohol Use: NoAlcoholic Drinks Per Day: 0Hx Substance Use: Yes (marijuana )Hx Tobacco Use: No Smoking Status: Unknown if Ever Smoker Exam Vital Signs Vital Sign - Last Date Time Temp Pulse Resp B/P Pulse Ox O2 Delivery O2 Flow Rate FiO2 02/19/17 16:35 37.3 63 18 135/87 98 Room Air Intake and Output 02/18/17 02/18/17 02/19/17 Cumulative From/Thru 15:00 23:00 07:00 02/16/17 00:40 - 02/19/17 06:34 Intake Total 1090 ml 1361 ml 69189 ml Output Total 1450 ml 2770 ml 67114 ml Balance -360 ml -1409 ml -2902 ml Intake Oral 640 ml 350 ml 3670 ml IV Total 450 ml 1011 ml 7023 ml Output Urine Total 1150 ml 2400 ml 27329 ml Stool Total 300 ml 370 ml 3470 ml Emesis 0 ml # Voids 6 6 General: Alert, Oriented X3, No Acute Distress Head: Normal Eyes: PERRLA, Scleral Anicteric Nose: Mucous Membr Moist/Horatio Mouth: Mucous Membr Moist/Horatio Neck: Supple Chest & Lungs: Clear to auscultation & percussion Cardiovascular: Regular Rate/Rhythm, No Murmurs/Rubs/Gallops Abdomen: Non-tender, Non-distended, Normoactive bowel tones, Ostomy ( presenting right lower quadrant with brown, liquid stool) Musculoskeletal: Unremarkable Extremities: No cyanosis/clubbing/edma bilat Neurological: Grossly Neurologically Intact, Cranial Nerves 2-12 Intact Lab and Diagnostics Result Diagram: 02/19/17 0710 02/19/17 0710 Assessment & Plan Assessment David Longo is a 61-year-old male with past medical history significant for Crohn's disease diagnosed 25 years ago status post recent diverting ileostomy on 01/27/2017, coronary artery disease with MIs and 4 vessel bypass and stenting who presented to [facility] ED due to a near syncopal episode. Syncopal episode is in light of recent hospitalization for high output ileostomy from which she was discharged on the . Patient states he has continued to have high output although it seems the patient's expectation of the amount and consistency of stool may be contributing to his perception of high output. GI recommendations: - Records requested from [facility]. Awaiting arrival. - Continue antidiarrheal regimen including cholestyramine 4 g twice a day, Metamucil, Lomotil, and Imodium. - Monitor electrolytes and kidney function. - Discussed with patient that he is welcome to have his mother bring Guar Gum in and our nursing staff can administer. - Patient's output today seems appropriate in quantity and consistency. We will continue to monitor. - Monitor on telemetry for possible cardiac cause of near syncopal episode. - Continue 6-mercaptopurine. Thank you for involving us in this patient's care. We will continue to follow. Problems: Pain Evaluation: Adequate Pain Control VTE Prophylaxis: Sub-Q Heparin (Unfractionated) Resuscitation Status: CPR: Attempt Resuscitation Attending Statement Patient seen and examined. Agree with assessment and plan as described by Dr Valdez. We really need records and apparently they have been requested but not arrived as yet. Currently, appears stable. I'd like to have a better sense as to the activity of his crohn's at baseline. Patient does not believe he ever had small bowel involvement. That said, the perforation history he relates seems a little unusual as well if he were actually in clinical remission from an IBD standpoint. For now, agree with the questran, imodium, lomotil, and guar gum. Will continue to follow and monitor with your. ALEXEI VALDEZ DO Feb 19, 2017 18:10 Andreas Sharma MD Feb 19, 2017 21:40
--- NOTE | 2017-02-19 19:27 | PCM.PNMED ---
Subjective Date of Service Feb 19, 2017 Subjective Assessment: Patient lying in bed on exam. States the output from ileostomy has remained stable. Now putting out dark brown fluid. Patient remains lightheaded. Discussed with the patient plans to consult GI. Patient will attempt to obtain guar gum as this is not our formulary. Events Overnight: No acute events overnight. ROS: Denies fever/chills, nausea/vomiting, headache, weakness, abdominal pain, chest pain, shortness of breath, increased swelling in hands or feet. Exam Vital Signs Vital Sign - Last Date Time Temp Pulse Resp B/P Pulse Ox O2 Delivery O2 Flow Rate FiO2 02/19/17 16:35 37.3 63 18 135/87 98 Room Air Intake and Output 02/18/17 02/18/17 02/19/17 Cumulative From/Thru 15:00 23:00 07:00 02/16/17 00:40 - 02/19/17 06:34 Intake Total 1090 ml 1361 ml 57028 ml Output Total 1450 ml 2770 ml 80624 ml Balance -360 ml -1409 ml -2902 ml Intake Oral 640 ml 350 ml 3670 ml IV Total 450 ml 1011 ml 7023 ml Output Urine Total 1150 ml 2400 ml 42742 ml Stool Total 300 ml 370 ml 3470 ml Emesis 0 ml # Voids 6 6 Exam General: No acute distress, well-developed, well-nourished HEENT: Normocephalic, atraumatic. External ears without defect. Pupils equal, round, and reactive to light and accommodation. Anicteric sclerae, moist conjunctivae. Cardiovascular: Regular rate and rhythm with no murmurs, rubs, or gallops appreciated Pulmonary: Clear to auscultation bilaterally with no crackles, wheezes, or rhonchi. Normal respiratory effort with no use of accessory muscles. Abdomen: Bowel tones decreased. Soft, nontender, nondistended. Ostomy present- ostomy bag and dark brown fluid. Extremities: No clubbing, cyanosis, edema Skin: Normal temperature, turgor, and texture; no rash, ulcers, or subcutaneous nodules appreciated. Neurological: Cranial nerves grossly intact. Reflexes, coordination, and sensory function within normal limits. Normal muscle strength, tone, and bulk. Psychiatric: Normal mood and affect. Alert and oriented to person, place, and time IVs and Medications IV Fluids 100 mL per hour normal saline Medications Reviewed: Medications were reviewed in detail Medications High-risk medications include: Ativan Lab and Diagnostics Result Diagram: 02/19/17 0710 02/19/17 0710 Microbiology Blood cultures 2 no growth after 24 hours Assessment & Plan David Longo is a 61-year-old man with past medical history significant for Crohn's disease for the last 25 years now status post ileostomy (January 27, 2017), coronary artery disease with MIs and 4 vessel bypass and stenting who presented to the [facility] emergency department on 02/16 via EMS due to a near syncopal episode. Near syncopal episode, present on admission,Improved - Multifactorial, due to vasovagal response as well as orthostasis from patient' s severe dehydration due to high output ostomy - Fall risk - Ostomy putting out brown liquid 02/17 as compared to 02/16, green liquid, and previous to that yellow liquid. Returned to brown 02/18 High anion gap metabolic acidosis and concomitant non-anion gap metabolic acidosis, present on admission, Improved -Likely secondary to GI losses -Continue with aggressive IV fluid hydration -Dietary consultation obtained -Antidiarrheal medications restarted High output ileostomy, present on admission, active - Patient had ileostomy placed on January 27. Anticipate that output will reduce over time, and stools will become better formed with antidiarrheal medication. - Continue aggressive IV fluid resuscitation - Dietary consultation - Antidiarrheal medications reordered - Continue patient's fiber supplementation - Patient's family will attempt to find guar gum which may be administered here in the hospital, however it is not on her formulary. - GI insurance healthcare consultant, following, continue cholestyramine 4 g Macrocytic anemia, present on admission, active - With an elevated RDW possibly due to multiple vitamin deficiencies given patient's Crohn's disease - Hemoglobin initially 12.0, dropped to 9.5 over a period of 8 hours. H&H has remained stable since that time. Likely dilutional. - Hemoglobin steadily increasing. - Continue to monitor - B12 and folate panels show normal levels of vitamin B12 and folate. Chronic issues, present on admission, stable: Coronary artery disease status post CABG and stenting -Continue patient's outpatient medications Anxiety/insomnia -Continue outpatient lorazepam Social support -Home Insurance Agent contacted to visit the patient, however patient does not want spiritual consults at this time. - I suggested to the patient that he would benefit from outpatient psych, for his depression to work through multiple issues which have occurred in the last 4.5 years. It appears that many of his current ailments can be attributed to his emotional distress over these recent events. At the moment he is unwilling to participate in any outpatient evaluation by psych, however he did state that he would think about it. Of note: Goals of care were discussed with the patient and his mother who was in the room on 02/17. Patient described frustrations with his current situation , including feeling helpless and discouraged at having to stay so much time in the hospital. He states that he was initially unwilling to go through the ileostomy procedure and had hoped for some complication such that he would not be subjected to the difficulties of post procedural life. He describes great frustration with trying to fill prescribed medications especially ostomy bags. He asked me if Spence was a " with dignity state" stating that he did not wish to continue medical treatment, except that he knows this would bring great sadness to his mother. He is not currently suicidal, however he is obviously depressed and frustrated with his current situation. Both him and his mother expressed concerns about early discharge. We discussed the possibility of SNF placement post hospital stay, however and his current depressed state he was not excited about this option. CODE STATUS: Full code Dispo: Patient will remain in hospital until fluid status improves, I expect this to be anywhere between 1-3 days VTE Prophylaxis: Sub-Q Heparin (Unfractionated) Resuscitation Status: CPR: Attempt Resuscitation Attending Statement The patient was seen and examined together with Dr. Stevens on 02/19/2017 and I agree with the history, exam and plan as outlined in the note above. . Lew Stevens DO Feb 19, 2017 19:27 Sacha Mcclelland MD Feb 22, 2017 19:35
[2017-02-19 20:00] VITALS: PULSE 65
[2017-02-19] MEDS: LORazepam 2 mg Tablet PO SCH (21:50)
[2017-02-19 22:07] VITALS: BP 124/80; PULSE 68; RESP 20; O2SAT 98
[2017-02-20] VITALS (7 sets, daily range): BP systolic 103–122; BP diastolic 67–81; PULSE 56–75; RESP 14–18; O2SAT 97–99
[2017-02-20] MEDS: DiphenOXYlate-Atropine 2.5 mg-0.025 mg Tablet PO SCH ×4 (03:37→20:49)
[2017-02-20] MEDS: 0.9% Sodium Chloride 1,000 ML IV SCH ×2 (07:00→15:15)
[2017-02-20 07:34] LABS: Mean Corpuscular Hemoglobin 36.9 pg (27.0-35.0); Mean Corpuscular Volume 104.8 fL (81-100)
[2017-02-20] MEDS: Heparin 5,000 Unit/mL Inj SUBQ SCH ×2 (08:30→16:08)
[2017-02-20] MEDS: Lidocaine Topical 5% Patch TOPICAL SCH (09:27)
[2017-02-20] MEDS: Cholestyramine Resin Powder 4 Gm Packet PO SCH ×2 (09:29→20:50)
--- NOTE | 2017-02-20 11:17 | PCM.PNSURG ---
Subjective Date of Service: Feb 20, 2017 Date of Service: Feb 20, 2017 Visit Information: Reason for Visit Dehydration, High Output Ileostomy Surgery/Surgery Date Post-Op Day # Date of Admission: Feb 16, 2017 at 02:58 Hospital Day # Subjective: Gastroenterology Progress Note No acute events overnight. Patient has remained hemodynamically stable. On telemetry patient appears to have a baseline heart rate in the low 50s. Patient has been able to sit up and stand at bedside without lightheadedness or dizziness. Patient denies any abdominal pain and states that ostomy output seems to be slowing down. Mother is currently attempting to obtain Guar Gum to bring in for the patient. Ostomy output in last 24 hours is 650 ml. Records from [facility] were obtained overnight and have elucidated his clinically picture. His diverting illeostomy was secondary to diverticulitis not Crohns disease as the patient had previously stated. His Crohns disease appears to be in remission at this time as there was no signs of inflammatory changes or small bowel involvement during surgery on 01/26/17. Postop General: No Complaints Objective Vital Sign- Last 8 Hours Date Time Temp Pulse Resp B/P Pulse Ox O2 Delivery O2 Flow Rate FiO2 02/20/17 10:11 36.4 62 18 106/67 97 Room Air 02/20/17 10:07 56 02/20/17 03:30 36.8 60 16 103/68 98 Room Air Intake and Output- Last 8 Hour 02/20/17 Cumulative From/Thru 07:00 02/16/17 00:40 - 02/20/17 05:00 Intake Total 1600 ml 03964 ml Output Total 1900 ml 91274 ml Balance -300 ml -2344 ml Intake Oral 600 ml 5306 ml IV Total 1000 ml 9025 ml Output Urine Total 1500 ml 69901 ml Stool Total 400 ml 4150 ml Emesis 0 ml # Voids 6 General: Alert, Oriented X3, No Acute Distress Neck: Supple Lungs: Clear to Auscultation Heart: Regular Rate/Rhythm, No Murmurs/Rubs/Gallops Abdomen: Benign, Soft, Ostomy (In RLQ with brown stool present ) Extremities: Distal Pulses Palpable, Warm Neuro: Grossly Neurologically Intact Catheters: None Result Diagram: 02/20/17 0705 02/20/17 07 Assessment & Plan Impression David Longo is a 61-year-old male with past medical history significant for Crohn's disease diagnosed 25 years ago status post recent diverting ileostomy on 01/27/2017, coronary artery disease with MIs and 4 vessel bypass and stenting who presented to [facility] ED due to a near syncopal episode. Syncopal episode is in light of recent hospitalization for high output ileostomy from which he was discharged on the . Patient states he has continued to have high output although it seems the patient's expectation of the amount and consistency of stool may be contributing to his perception of high output. 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 Chrons disease appears to be in remission with no small bowel involvement. - Continue antidiarrheal regimen including cholestyramine that was increased to 8 g twice a day, Lomotil, and Imodium. - Patient's mother is attempting to ascertain Guar Gum as this was successful in decreasing output previously. - Monitor electrolytes and kidney function. Continue to remain stable. - Patient's output continues to be high but is trending down. We will continue to monitor. - Telemetry has shown patient to have baseline heart rate in the 50s. No significant bradycardic episodes aside from this. - Continue 6-mercaptopurine. Thank you for involving us in this patient's care. We will continue to follow. Problems: VTE Prophylaxis: Sub-Q Heparin (Unfractionated) Resuscitation Status: CPR: Attempt Resuscitation Attending Statement: Patient seen and examined. Agree with assessment and plan as described by Dr De León. Overall, appears stable and ileostomy output at present time would be within normal limits. We recommended he take advantage of being on telemetry and walk around on the unit to determine if he is having any recurrent postural symptoms dizziness etc. ALEXEI DE LEÓN DO Feb 20, 2017 11:17 Andreas Sharma MD Feb 20, 2017 15:47
--- NOTE | 2017-02-20 16:58 | NUR ---
Up ambulating in halls today, 4 laps around without difficulty. Continued sore left shoulder from "straining" prior to admission, Lidocaine patch somewhat helpful. Declines PO analgesics when offered. Vital signs stable, afebrile. Sinus rhythm on tele. Refusing Heparin injections, as well as Metamucil. Ileostomy output remains sub-optimal. A/O and in good spirits, possible discharge tomorrow.
--- NOTE | 2017-02-20 19:24 | PCM.PNMED ---
Subjective Date of Service Feb 20, 2017 Subjective Assessment: Patient remains in similar state complaining of weakness. He states that he attempted to swing his legs over the bed and stand up, this produced dizziness, however tolerable. Ostomy continues to put out dark brown fluid. Events Overnight: No acute events overnight. ROS: Denies fever/chills, nausea/vomiting, headache, weakness, abdominal pain, chest pain, shortness of breath, increased swelling in hands or feet. Exam Vital Signs Vital Sign - Last Date Time Temp Pulse Resp B/P Pulse Ox O2 Delivery O2 Flow Rate FiO2 02/20/17 16:02 37.0 75 18 122/81 98 Room Air Intake and Output 02/19/17 02/19/17 02/20/17 Cumulative From/Thru 15:00 23:00 07:00 02/16/17 00:40 - 02/20/17 05:00 Intake Total 2038 ml 1600 ml 97450 ml Output Total 1180 ml 1900 ml 71353 ml Balance 858 ml -300 ml -2344 ml Intake Oral 1036 ml 600 ml 5306 ml IV Total 1002 ml 1000 ml 9025 ml Output Urine Total 900 ml 1500 ml 21566 ml Stool Total 280 ml 400 ml 4150 ml Emesis 0 ml # Voids 6 Exam General: No acute distress, well-developed, well-nourished HEENT: Normocephalic, atraumatic. External ears without defect. Pupils equal, round, and reactive to light and accommodation. Anicteric sclerae, moist conjunctivae. Cardiovascular: Regular rate and rhythm with no murmurs, rubs, or gallops appreciated Pulmonary: Clear to auscultation bilaterally with no crackles, wheezes, or rhonchi. Normal respiratory effort with no use of accessory muscles. Abdomen: Bowel tones decreased. Soft, nontender, nondistended. Ostomy present- ostomy bag and dark brown fluid. Extremities: No clubbing, cyanosis, edema Skin: Normal temperature, turgor, and texture; no rash, ulcers, or subcutaneous nodules appreciated. Neurological: Cranial nerves grossly intact. Reflexes, coordination, and sensory function within normal limits. Normal muscle strength, tone, and bulk. Psychiatric: Normal mood and affect. Alert and oriented to person, place, and time IVs and Medications IV Fluids Patient on constant infusion of 100 mL per hour normal saline Medications Reviewed: Medications were reviewed in detail Lab and Diagnostics Result Diagram: 02/20/17 0705 02/20/17 0705 Microbiology Blood cultures 2 no growth after 24 hours Assessment & Plan David Longo is a 61-year-old man with past medical history significant for Crohn's disease for the last 25 years now status post ileostomy (January 27, 2017), coronary artery disease with MIs and 4 vessel bypass and stenting who presented to the [facility] emergency department on 02/16 via EMS due to a near syncopal episode. Near syncopal episode, present on admission,Improved - Multifactorial, due to vasovagal response as well as orthostasis from patient' s severe dehydration due to high output ostomy - Fall risk - Ostomy putting out brown liquid 02/17 as compared to 02/16, green liquid, and previous to that yellow liquid. Returned to brown 02/18 High anion gap metabolic acidosis and concomitant non-anion gap metabolic acidosis, present on admission, resolved -Likely secondary to GI losses -Continue with aggressive IV fluid hydration -Dietary consultation obtained -Antidiarrheal medications restarted High output ileostomy, present on admission, improving. Patient had ileostomy placed on January 27. Records from [facility] indicate that surgery was done in relation to diverticulitis fistula as opposed to Crohn's related. - It is anticipated that output will reduce over time, and stools will become better formed with antidiarrheal medication, this is not been the case up to this point. - Continue aggressive IV fluid resuscitation - Dietary consultation - Antidiarrheal medications reordered - Continue patient's fiber supplementation - Patient's family will attempt to find guar gum which may be administered here in the hospital, however it is not on our formulary. - GI industrial methods consultant, following, increased cholestyramine to 8g - Typical ostomy output should be no more than 200 mL currently 600. Macrocytic anemia, present on admission, active - With an elevated RDW possibly due to multiple vitamin deficiencies given patient's Crohn's disease - Hemoglobin initially 12.0, dropped to 9.5 over a period of 8 hours. H&H has remained stable since that time. Likely dilutional. - Hemoglobin steadily increasing. - Continue to monitor - B12 and folate panels show normal levels of vitamin B12 and folate. Chronic issues, present on admission, stable: Coronary artery disease status post CABG and stenting -Continue patient's outpatient medications Anxiety/insomnia -Continue outpatient lorazepam Social support -Aging Department Supervisor contacted to visit the patient, however patient does not want spiritual consults at this time. - I suggested to the patient that he would benefit from outpatient psych, for his depression to work through multiple issues which have occurred in the last 4.5 years. It appears that many of his current ailments can be attributed to his emotional distress over these recent events. At the moment he is unwilling to participate in any outpatient evaluation by psych, however he did state that he would think about it. Of note: Goals of care were discussed with the patient and his mother who was in the room on 02/17. Patient described frustrations with his current situation , including feeling helpless and discouraged at having to stay so much time in the hospital. He states that he was initially unwilling to go through the ileostomy procedure and had hoped for some complication such that he would not be subjected to the difficulties of post procedural life. He describes great frustration with trying to fill prescribed medications especially ostomy bags. He asked me if Spence was a " with dignity state" stating that he did not wish to continue medical treatment, except that he knows this would bring great sadness to his mother. He is not currently suicidal, however he is obviously depressed and frustrated with his current situation. Both him and his mother expressed concerns about early discharge. We discussed the possibility of SNF placement post hospital stay, however and his current depressed state he was not excited about this option. CODE STATUS: Full code Dispo: Patient will be discharged home when fluid status improves, I expect this to be anywhere between 1-3 days VTE Prophylaxis: Sub-Q Heparin (Unfractionated) Resuscitation Status: CPR: Attempt Resuscitation Attending Statement The patient was seen and examined together with Dr. Stevens on 02/20/2017 and I agree with the history, exam and plan as outlined in the note above. . Lew Stevens DO Feb 20, 2017 16:32 Sacha Mcclelland MD Feb 22, 2017 19:36
[2017-02-20] MEDS: LORazepam 2 mg Tablet PO SCH (20:49)
[2017-02-21] VITALS (9 sets, daily range): BP systolic 105–122; BP diastolic 67–78; PULSE 57–91; RESP 14–18; O2SAT 96–99
[2017-02-21] MEDS: Heparin 5,000 Unit/mL Inj SUBQ SCH ×3 (00:30→16:12)
[2017-02-21] MEDS: 0.9% Sodium Chloride 1,000 ML IV SCH ×4 (01:39→21:29)
[2017-02-21] MEDS: DiphenOXYlate-Atropine 2.5 mg-0.025 mg Tablet PO SCH ×4 (03:39→20:25)
--- NOTE | 2017-02-21 05:11 | NUR ---
A/Ox3, makes needs known. C/O moderate shoulder pain, refuses analgesics, lidocaine patch effective per pt. Refused SQ heparin. Ileostomy output remains fairly liquid, although much improved since admission. VSS, slept most of this shift. Plan to DC today or tomorrow. Care continues.
[2017-02-21] MEDS: Lidocaine Topical 5% Patch TOPICAL SCH (08:05)
[2017-02-21] MEDS: Cholestyramine Resin Powder 4 Gm Packet PO SCH ×2 (10:02→20:25)
--- NOTE | 2017-02-21 14:40 | PCM.PNSURG ---
Subjective Date of Service: Feb 21, 2017 Date of Service: Feb 21, 2017 Visit Information: Reason for Visit Dehydration, High Output Ileostomy Surgery/Surgery Date Post-Op Day # Date of Admission: Feb 16, 2017 at 02:58 Hospital Day # Subjective: Gastroenterology Progress Note No acute events overnight. Patient ambulated in the hallway without difficulty. Patient is tolerating oral intake. Still acutely concerned about output and possible dehydration. Patient notes hoarseness and believes this is the initial sign of his dehydration. For this reason the primary team has restarted IV fluids. Patient's labs are completely stable which we discussed in detail. Patient continues to be concerned about being discharged early. His mother was able to obtain Guar Gum and the patient has started taking this as of last night. Ostomy output had trended down but is slightly increased today. Yesterday over a 24-hour period he had 550 mL out. Today already since midnight he has 990 mL out. Gastrointestinal: Good Appetite, No N/V Pain Management: No or Minimal Pain Postop Activity: Ambulating Independently Objective Vital Sign- Last 8 Hours Date Time Temp Pulse Resp B/P Pulse Ox O2 Delivery O2 Flow Rate FiO2 02/21/17 12:47 37.0 91 16 105/71 97 Room Air 02/21/17 11:09 61 02/21/17 08:00 36.9 57 16 107/72 96 Room Air Intake and Output- Last 8 Hour 02/21/17 Cumulative From/Thru 07:00 02/16/17 00:40 - 02/21/17 05:29 Intake Total 410 ml 66434 ml Output Total 990 ml 55718 ml Balance -580 ml -2624 ml Intake Oral 400 ml 6506 ml IV Total 10 ml 97900 ml Output Urine Total 78418 ml Stool Total 990 ml 5290 ml Emesis 0 ml # Voids 5 11 General: Alert, Oriented X3 Neck: Supple Lungs: Clear to Auscultation Heart: Regular Rate/Rhythm Abdomen: Benign, Soft, Non-distended, Normoactive bowel tones, Ostomy pink & viable Extremities: Distal Pulses Palpable, Warm Neuro: Cranial Nerves 2-12 nl Catheters: None Result Diagram: 02/20/17 0705 02/20/17 07 Assessment & Plan Impression David Donta is a 61-year-old male with past medical history significant for Crohn's disease diagnosed 25 years ago status post recent diverting ileostomy on 01/27/2017, coronary artery disease with MIs and 4 vessel bypass and stenting who presented to [facility] ED due to a near syncopal episode. Syncopal episode is in light of recent hospitalization for high output ileostomy from which he was discharged on the from [facility]. 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 It was not a result of his Crohn's disease that appears to be in remission with no current or prior small bowel involvement. Patient's output had been decreasing up until today. Today is slightly increased in the patient has been restarted on a few fluids. GI recommendations: - Continue antidiarrheal regimen including: cholestyramine 8 g twice a day, loperamide 2 mg every 6 hours, Lomotil 2 tablets every 6 hours, and Guar gum. - Monitor electrolytes and kidney function. Continue to remain stable. - Patient's output had trended down and yesterday it was within normal limits. Today however it is slightly increased. We will continue to monitor closely. - No concerning events on telemetry. - Continue monitor electrolytes and renal function although this has been stable since admission. - Continue 6-mercaptopurine. - Encouraged patient to ambulate in the hallways multiple times daily as he is being monitored closely and if he does develop symptoms we can address them immediately. Thank you for involving us in this patient's care. We will continue to follow. Problems: VTE Prophylaxis: Sub-Q Heparin (Unfractionated) Resuscitation Status: CPR: Attempt Resuscitation Attending Statement: Patient seen and examined. Agree with assessment and plan as described by Dr De León. No labs today. Fluids were restarted b/c patient complained of some hoarseness. Explained that this did not necessarily mean he was going into renal failure from dehydration but could conceivably be related to reflux. Patient seemed to discount that possibility but i tried to explain how this might be the case if he is predominantly lying in bed all day and consuming a normal diet with plenty of fluids. Encouraged more ambulation. Needs daily labs to better track what is going on here. Definitely needs strict INS and OUTS. The increased stoma output could easily be a function of increased PO fluid intake. Will continue to monitor. ALEXEI DE LEÓN DO Feb 21, 2017 14:40 Andreas Sharma MD Feb 21, 2017 22:47
--- NOTE | 2017-02-21 18:31 | NUR ---
Makes Needs Know/Raspy & Weak Voice/Output for Ileostomy Pt. throughout shift is pleasant and makes his needs known by using call light appropriately. Pt. this afternoon did c/o of a "raspy and weak voice" and stated that "this is how my dehydration starts and it gets worse quick, that is why I have been in and out of the hospital. This is so discouraging." Pt. was reminded that his doctors are trying to solve this so he can go home. IV NS at 100mL/hr was restarted and Pt. at about 1700 states he feels better. The "raspy and weak voice" noted is no longer there, Pt. sounds stronger when communicating. Output for Ileostomy: 650mL total
[2017-02-21] MEDS: LORazepam 2 mg Tablet PO SCH (20:25)
--- NOTE | 2017-02-21 22:27 | PCM.PNMED ---
Subjective Date of Service Feb 21, 2017 Subjective David Longo is a 61-year-old man with past medical history significant for Crohn's disease for the last 25 years now status post ileostomy (January 27, 2017), coronary artery disease with MIs and 4 vessel bypass and stenting who presented to the [facility] emergency department on 02/16 via EMS due to a near syncopal episode. Assessment: Patient continues to feel fatigued however he states that he feels slightly better than previous. He is able to stand occasionally without dizziness Events Overnight: No acute events overnight. ROS: Denies fever/chills, nausea/vomiting, headache, weakness, abdominal pain, chest pain, shortness of breath, increased swelling in hands or feet. Exam Vital Signs Vital Sign - Last Date Time Temp Pulse Resp B/P Pulse Ox O2 Delivery O2 Flow Rate FiO2 02/21/17 19:45 37.5 74 14 114/72 99 Room Air Intake and Output 02/20/17 02/20/17 02/21/17 Cumulative From/Thru 15:00 23:00 07:00 02/16/17 00:40 - 02/21/17 05:29 Intake Total 2000 ml 410 ml 34208 ml Output Total 1700 ml 990 ml 05911 ml Balance 300 ml -580 ml -2624 ml Intake Oral 800 ml 400 ml 6506 ml IV Total 1200 ml 10 ml 71093 ml Output Urine Total 1550 ml 78389 ml Stool Total 150 ml 990 ml 5290 ml Emesis 0 ml # Voids 5 11 Exam General: No acute distress, well-developed, well-nourished HEENT: Normocephalic, atraumatic. External ears without defect. Pupils equal, round, and reactive to light and accommodation. Anicteric sclerae, moist conjunctivae. Cardiovascular: Regular rate and rhythm with no murmurs, rubs, or gallops appreciated Pulmonary: Clear to auscultation bilaterally with no crackles, wheezes, or rhonchi. Normal respiratory effort with no use of accessory muscles. Abdomen: Bowel tones decreased. Soft, nontender, nondistended. Ostomy present- ostomy bag and dark brown mush. Extremities: No clubbing, cyanosis, edema Skin: Normal temperature, turgor, and texture; no rash, ulcers, or subcutaneous nodules appreciated. Neurological: Cranial nerves grossly intact. Reflexes, coordination, and sensory function within normal limits. Normal muscle strength, tone, and bulk. Psychiatric: Normal mood and affect. Alert and oriented to person, place, and time IVs and Medications IV Fluids 100 mL/hr normal saline Medications Reviewed: Medications were reviewed in detail Medications High-risk medications include: Ativan Lab and Diagnostics Result Diagram: 02/20/1770402/20/17704 Microbiology Blood cultures 2 no growth Assessment & Plan David Longo is a 61-year-old man with past medical history significant for Crohn's disease for the last 25 years now status post ileostomy (January 27, 2017), coronary artery disease with MIs and 4 vessel bypass and stenting who presented to the [facility] emergency department on 02/16 via EMS due to a near syncopal episode. Near syncopal episode, present on admission,Improved - Multifactorial, due to vasovagal response as well as orthostasis from patient' s severe dehydration due to high output ostomy - Fall risk - Ostomy putting out brown liquid 02/17 as compared to 02/16, green liquid, and previous to that yellow liquid. Returned to brown 02/18 High anion gap metabolic acidosis and concomitant non-anion gap metabolic acidosis, present on admission, resolved -Likely secondary to GI losses -Continue with aggressive IV fluid hydration -Dietary consultation obtained -Antidiarrheal medications restarted High output ileostomy, present on admission, improving. Patient had ileostomy placed on January 27. 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 - It is anticipated that output will reduce over time, and stools will become better formed with antidiarrheal medication, this is not been the case up to this point. - Continue aggressive IV fluid resuscitation - Antidiarrheal medications on board - Continue patient's fiber supplementation - Guar gum initiated in combination with other antidiarrheal medications - GI consulted, increased cholestyramine to 8g twice a day, continue this dose increase if necessary. - Typical ostomy output should be no more than 200 mL currently 600. - DC daily labs as patient's electrolytes have remained stable for the last 5 days, consider recheck prior to discharge. Macrocytic anemia, present on admission, active - With an elevated RDW possibly due to multiple vitamin deficiencies given patient's Crohn's disease - Hemoglobin initially 12.0, dropped to 9.5 over a period of 8 hours. H&H has remained stable since that time. Likely dilutional. - Hemoglobin steadily increasing.r - B12 and folate panels show normal levels of vitamin B12 and folate. - DC daily labs as patient's electrolytes and blood values have been normal without concern for bleeding. Chronic issues, present on admission, stable: Coronary artery disease status post CABG and stenting -Continue patient's outpatient medications Anxiety/insomnia -Continue outpatient lorazepam Social support -Chart Collector contacted to visit the patient, however patient does not want spiritual consults at this time. - I suggested to the patient that he would benefit from outpatient psych, for his depression to work through multiple issues which have occurred in the last 4.5 years. It appears that many of his current ailments can be attributed to his emotional distress over these recent events. At the moment he is unwilling to participate in any outpatient evaluation by psych, however he did state that he would think about it. Of note: Goals of care were discussed with the patient and his mother who was in the room on 02/17. Patient described frustrations with his current situation , including feeling helpless and discouraged at having to stay so much time in the hospital. He states that he was initially unwilling to go through the ileostomy procedure and had hoped for some complication such that he would not be subjected to the difficulties of post procedural life. He describes great frustration with trying to fill prescribed medications especially ostomy bags. He asked me if Spence was a " with dignity state" stating that he did not wish to continue medical treatment, except that he knows this would bring great sadness to his mother. He is not currently suicidal, however he is obviously depressed and frustrated with his current situation. Both him and his mother expressed concerns about early discharge. We discussed the possibility of SNF placement post hospital stay, however and his current depressed state he was not excited about this option. CODE STATUS: Full code Dispo: Patient will be discharged home when fluid status improves, I expect this to be anywhere between 1-3 days VTE Prophylaxis: Sub-Q Heparin (Unfractionated) Resuscitation Status: CPR: Attempt Resuscitation Attending Statement The patient was seen and examined together with Dr. Stevens on 02/21/2017 and I agree with the history, exam and plan as outlined in the note above. . Lew Stevens DO Feb 21, 2017 22:27 Sacha Mcclelland MD Feb 22, 2017 19:39
[2017-02-22] MEDS: Heparin 5,000 Unit/mL Inj SUBQ SCH ×4 (00:30→23:53)
[2017-02-22] MEDS: DiphenOXYlate-Atropine 2.5 mg-0.025 mg Tablet PO SCH ×4 (02:37→20:37)
[2017-02-22 02:48] VITALS: BP 106/57; PULSE 78; RESP 14; O2SAT 98
--- NOTE | 2017-02-22 05:34 | NUR ---
Ileostomy 190 cc out of ileostomy this shift, a marked improvement from last night. Pt slept quietly most of this shift. Refused SQ heparin. NS at 100/hr for dehydration. Care continues.
[2017-02-22] MEDS: 0.9% Sodium Chloride 1,000 ML IV SCH ×2 (06:00→17:15)
[2017-02-22 08:00] VITALS: PULSE 59; PULSE 89
--- NOTE | 2017-02-22 08:17 | PCM.PNSURG ---
Subjective Date of Service: Feb 22, 2017 Date of Service: Feb 22, 2017 Visit Information: Reason for Visit Dehydration, High Output Ileostomy Surgery/Surgery Date Post-Op Day # Date of Admission: Feb 16, 2017 at 02:58 Hospital Day # Subjective: Gastroenterology Progress Note No acute events overnight. Fluids stopped this morning. Patient feels well. No hoarseness, dizziness, vomiting, abdominal pain, fever, or chills. Ileostomy output yesterday was significantly increased from days prior at 2290 ml. Postop General: No Complaints Objective Vital Sign- Last 8 Hours Date Time Temp Pulse Resp B/P Pulse Ox O2 Delivery O2 Flow Rate FiO2 02/22/17 02:48 36.7 78 14 106/57 98 Room Air Intake and Output- Last 8 Hour 02/22/17 Cumulative From/Thru 07:00 02/16/17 00:40 - 02/22/17 05:14 Intake Total 1646 ml 03520 ml Output Total 1735 ml 88204 ml Balance -89 ml -4083 ml Intake Oral 600 ml 7906 ml IV Total 1046 ml 16091 ml Output Urine Total 1545 ml 59558 ml Stool Total 190 ml 6780 ml Emesis 0 ml # Voids 14 General: Alert, Oriented X3, No Acute Distress Neck: Supple Lungs: Clear to Auscultation Heart: Regular Rate/Rhythm, No Murmurs/Rubs/Gallops Abdomen: Benign, Soft, Ostomy pink & viable (light brown liquid stool present) Extremities: Distal Pulses Palpable, Warm Neuro: Cranial Nerves 2-12 nl, Grossly Neurologically Intact Catheters: None Result Diagram: 02/20/17 0705 02/20/17 0705 Assessment & Plan Impression David Longo is a 61-year-old male with past medical history significant for Crohn's disease diagnosed 25 years ago status post recent diverting ileostomy on 01/27/2017, coronary artery disease with MIs and 4 vessel bypass and stenting who presented to [facility] ED due to a near syncopal episode. Syncopal episode is in light of recent hospitalization for high output ileostomy from which he was discharged on the from [facility]. 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 It was not a result of his Crohn's disease that appears to be in remission with no current or prior small bowel involvement. Patient's output had been decreasing up until yesterday when he had 2290 ml out. Patient was restarted on fluids as he voiced concern for dehydration without lab evaluation. Increased stoma output may conceivable be a function of increased PO fluid intake. GI recommendations: - Continue antidiarrheal regimen including: cholestyramine 8 g twice a day, loperamide 2 mg every 6 hours, Lomotil 2 tablets every 6 hours, and Guar gum. - Monitor electrolytes and kidney function daily. Labs ordered this morning and pending. - Patient's output had trended down until yesterday. Increased IV and oral fluids may account for part of the increase. We will continue to monitor closely. Strict Ins and Outs. - Continue 6-mercaptopurine. - Encouraged patient to ambulate in the hallways multiple times daily as he is being monitored closely and if he does develop symptoms we can address them immediately. - Patient should sit up in chair or ambulate after meals for at least 2-3 hours to prevent reflux that may be causing his hoarseness. Thank you for involving us in this patient's care. We will continue to follow. Problems: VTE Prophylaxis: Sub-Q Heparin (Unfractionated) Resuscitation Status: CPR: Attempt Resuscitation Attending Statement: Patient seen and examined. Agree with assessment and plan as described by Dr De León. Strict I/O's. Increase imodium. Monitor electrolytes/BUN/Cr daily. ALEXEI DE LEÓN DO Feb 22, 2017 08:17 Andreas Sharma MD Feb 22, 2017 23:04
[2017-02-22 08:29] VITALS: BP 116/75; PULSE 59; RESP 16; O2SAT 98
[2017-02-22] MEDS: Lidocaine Topical 5% Patch TOPICAL SCH (08:34)
[2017-02-22 08:46] LABS: Mean Corpuscular Hemoglobin 36.9 pg (27.0-35.0)
[2017-02-22] MEDS: Cholestyramine Resin Powder 4 Gm Packet PO SCH ×2 (10:16→20:37)
[2017-02-22 16:17] VITALS: BP 123/87; PULSE 73; RESP 16; O2SAT 98
--- NOTE | 2017-02-22 17:44 | PCM.PNMED ---
Subjective Date of Service Feb 22, 2017 Subjective 82-year-old male with history of hypertension, hyperlipidemia, and CAD who presents in atrial flutter with syncopal episodes 3 with documented ventricular p on December greater than 3 seconds on rhythm strip in the emergency department. Assessment: Patient laying in bed on exam. Patient states he continues to feel stronger however remains weak. Patient is able to go a few hours without IV fluids, however after that point begins to feel symptomatic. Events Overnight: No acute events overnight. ROS: Denies fever/chills, nausea/vomiting, headache, weakness, abdominal pain, chest pain, shortness of breath, increased swelling in hands or feet. Exam Vital Signs Vital Sign - Last Date Time Temp Pulse Resp B/P Pulse Ox O2 Delivery O2 Flow Rate FiO2 02/22/17 16: 36.9 73 16 123/87 98 Room Air Intake and Output 02/21/17 02/21/17 02/22/17 Cumulative From/Thru 15:00 23:00 07:00 02/16/17 00:40 - 02/22/17 05:14 Intake Total 1355 ml 1646 ml 64562 ml Output Total 2725 ml 1735 ml 96378 ml Balance -1370 ml -89 ml -4083 ml Intake Oral 800 ml 600 ml 7906 ml IV Total 555 ml 1046 ml 55783 ml Output Urine Total 1425 ml 1545 ml 80987 ml Stool Total 1300 ml 190 ml 6780 ml Emesis 0 ml # Voids 3 14 Exam General: No acute distress, well-developed, well-nourished HEENT: Normocephalic, atraumatic. External ears without defect. Pupils equal, round, and reactive to light and accommodation. Anicteric sclerae, moist conjunctivae. Cardiovascular: Regular rate and rhythm with no murmurs, rubs, or gallops appreciated Pulmonary: Clear to auscultation bilaterally with no crackles, wheezes, or rhonchi. Normal respiratory effort with no use of accessory muscles. Abdomen: Bowel tones decreased. Soft, nontender, nondistended. Ostomy present- ostomy bag and dark brown mush. Extremities: No clubbing, cyanosis, edema Skin: Normal temperature, turgor, and texture; no rash, ulcers, or subcutaneous nodules appreciated. Neurological: Cranial nerves grossly intact. Reflexes, coordination, and sensory function within normal limits. Normal muscle strength, tone, and bulk. Psychiatric: Normal mood and affect. Alert and oriented to person, place, and time IVs and Medications IV Fluids 100 mL of IV normal saline/per hour Medications Reviewed: Medications were reviewed in detail Medications High-risk medications include: Ativan Lab and Diagnostics Result Diagram: 02/22/1782602/22/17826 Microbiology Blood cultures 2 no growth Assessment & Plan David Longo is a 61-year-old man with past medical history significant for Crohn's disease for the last 25 years now status post ileostomy (January 27, 2017), coronary artery disease with MIs and 4 vessel bypass and stenting who presented to the [facility] emergency department on 02/16 via EMS due to a near syncopal episode. Near syncopal episode, present on admission,Improved - Multifactorial, due to vasovagal response as well as orthostasis from patient' s severe dehydration due to high output ostomy - Fall risk - Ostomy putting out brown liquid 02/17 as compared to 02/16, green liquid, and previous to that yellow liquid. Returned to brown 02/18 High anion gap metabolic acidosis and concomitant non-anion gap metabolic acidosis, present on admission, resolved -Likely secondary to GI losses -Continue with aggressive IV fluid hydration -Dietary consultation obtained -Antidiarrheal medications restarted High output ileostomy, present on admission, improving. Patient had ileostomy placed on January 27. Records from 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 - It is anticipated that output will reduce over time, and stools will become better formed with antidiarrheal medication, this is not been the case up to this point. - Continue aggressive IV fluid resuscitation - Antidiarrheal medications on board - Continue patient's fiber supplementation - Guar gum initiated in combination with other antidiarrheal medications - GI consulted, increased cholestyramine to 8g twice a day, continue this dose increase if necessary. - Typical ostomy output should be no more than 200 mL currently 600. - Patient continue off IV fluids today we will see how this is tolerated and monitor his electrolytes in the morning. Macrocytic anemia, present on admission, active - With an elevated RDW possibly due to multiple vitamin deficiencies given patient's Crohn's disease - Hemoglobin initially 12.0, dropped to 9.5 over a period of 8 hours. H&H has remained stable since that time. Likely dilutional. - Hemoglobin steadily increasing.r - B12 and folate panels show normal levels of vitamin B12 and folate. Chronic issues, present on admission, stable: Coronary artery disease status post CABG and stenting -Continue patient's outpatient medications Anxiety/insomnia -Continue outpatient lorazepam Social support -Mechanical System Technician contacted to visit the patient, however patient does not want spiritual consults at this time. - I suggested to the patient that he would benefit from outpatient psych, for his depression to work through multiple issues which have occurred in the last 4.5 years. It appears that many of his current ailments can be attributed to his emotional distress over these recent events. At the moment he is unwilling to participate in any outpatient evaluation by psych, however he did state that he would think about it. Of note: Goals of care were discussed with the patient and his mother who was in the room on 02/17. Patient described frustrations with his current situation , including feeling helpless and discouraged at having to stay so much time in the hospital. He states that he was initially unwilling to go through the ileostomy procedure and had hoped for some complication such that he would not be subjected to the difficulties of post procedural life. He describes great frustration with trying to fill prescribed medications especially ostomy bags. He asked me if Spence was a " with dignity state" stating that he did not wish to continue medical treatment, except that he knows this would bring great sadness to his mother. He is not currently suicidal, however he is obviously depressed and frustrated with his current situation. Both him and his mother expressed concerns about early discharge. We discussed the possibility of SNF placement post hospital stay, however and his current depressed state he was not excited about this option. CODE STATUS: Full code Dispo: Patient will be discharged home when fluid status improves, I expect this to be anywhere between 1-3 days VTE Prophylaxis: Sub-Q Heparin (Unfractionated) Resuscitation Status: CPR: Attempt Resuscitation Attending Statement The patient was seen and examined together with Dr. Stevens on 02/22/2017 and I agree with the history, exam and plan as outlined in the note above. . Lew Stevens DO Feb 22, 2017 17:44 Sacha Mcclelland MD Feb 22, 2017 19:40
--- NOTE | 2017-02-22 18:36 | NUR ---
Activity/Ortho. Hypotension Pt. ambulated around the unit x3 and denied feeling CP, SOB. Pt. did state that last night when he coughed he felt a "weird feeling on his LLQ where they did an incision. It does not hurt but more of a discomfort." Pts. VS for ortho. hypotenstion are as follows: Laying down was BP 125/82, P73, SpO2 98% RA. Sitting BP 123/87, P74, SpO2 98% RA, and Standing BP 121/92, P78, SpO2 98% RA. Will continue to monitor.
[2017-02-22 19:20] VITALS: BP 121/80; PULSE 68; RESP 16; O2SAT 99
[2017-02-22] MEDS: LORazepam 2 mg Tablet PO SCH (20:37)
[2017-02-22 23:49] VITALS: BP 121/67; PULSE 50; RESP 16; O2SAT 99
[2017-02-23] VITALS (9 sets, daily range): BP systolic 101–123; BP diastolic 67–86; PULSE 58–76; RESP 14–22; O2SAT 96–99
[2017-02-23] MEDS: DiphenOXYlate-Atropine 2.5 mg-0.025 mg Tablet PO SCH ×4 (02:44→22:09)
[2017-02-23] MEDS: 0.9% Sodium Chloride 1,000 ML IV SCH ×3 (02:58→23:00)
[2017-02-23 03:21] LABS: Mean Corpuscular Volume 104.5 fL (81-100)
[2017-02-23 03:38] LABS: Phosphorus 4.3 mg/dL (2.5-4.9)
--- NOTE | 2017-02-23 05:54 | NUR ---
Ileostomy Strict I&Os this shift, 600 mL brown, liquid ileostomy output. Pt expressed some anxiety regarding discharge and fear that he will be readmitted if DC'd too soon. Care continues.
[2017-02-23] MEDS: Heparin 5,000 Unit/mL Inj SUBQ SCH ×3 (08:30→22:59)
[2017-02-23] MEDS: Cholestyramine Resin Powder 4 Gm Packet PO SCH ×2 (09:23→22:59)
[2017-02-23] MEDS: Lidocaine Topical 5% Patch TOPICAL SCH (09:25)
--- NOTE | 2017-02-23 10:54 | PCM.PNSURG ---
Subjective Date of Service: Feb 23, 2017 Date of Service: Feb 23, 2017 Visit Information: Reason for Visit Dehydration, High Output Ileostomy Surgery/Surgery Date Post-Op Day # Date of Admission: Feb 16, 2017 at 02:58 Hospital Day # Subjective: Gastroenterology Progress Note No acute events overnight. Fluids have been off since the morning of 2016. Patient's ostomy with decreased output yesterday of 690 mL compared to the prior day's 2290. Patient states he is feeling fairly well but continues to complain that he consistently is dehydrated although he has a large Gatorade bottle on his standard all times. He was able to ambulate around the hallways without difficulty. Orthostatic blood pressure was completely normal without signs of hypotension or orthostatic changes. Patient denies any ongoing abdominal pain, nausea, vomiting, chest pain, or shortness of breath. Objective Vital Sign- Last 8 Hours Date Time Temp Pulse Resp B/P Pulse Ox O2 Delivery O2 Flow Rate FiO2 02/23/17 09:31 37.1 58 16 107/71 Room Air 02/23/17 08:00 59 02/23/17 04:35 37.1 69 16 101/67 98 Room Air 02/23/17 04:32 62 02/23/17 02:47 36.3 76 14 116/79 99 Room Air Intake and Output- Last 8 Hour 02/23/17 Cumulative From/Thru 07:00 02/16/17 00:40 - 02/23/17 04:35 Intake Total 250 ml 04938 ml Output Total 1600 ml 70033 ml Balance -1350 ml -6537 ml Intake Oral 250 ml 9092 ml IV Total 85563 ml Output Urine Total 1000 ml 30690 ml Stool Total 600 ml 7880 ml Emesis 0 ml # Voids 14 General: Alert, Oriented X3, No Acute Distress Neck: Supple, Full Range of Motion Lungs: Clear to Auscultation, Normal Air Movement Heart: Regular Rate/Rhythm, No Murmurs/Rubs/Gallops Abdomen: Benign, Soft, Non-tender, Non-distended, Normoactive bowel tones, Ostomy pink & viable (with brown liquid stool) Extremities: Distal Pulses Palpable, Warm Neuro: Cranial Nerves 2-12 nl, Grossly Neurologically Intact Catheters: None Result Diagram: 02/23/17 0245 02/23/17 0245 Assessment & Plan Impression David Donta is a 61-year-old male with past medical history significant for Crohn's disease diagnosed 25 years ago status post recent diverting ileostomy on 01/27/2017, coronary artery disease with MIs and 4 vessel bypass and stenting who presented to [facility] ED due to a near syncopal episode. Syncopal episode is in light of recent hospitalization for high output ileostomy from which he was discharged on the from [facility]. 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 It was not a result of his Crohn's disease that appears to be in remission with no current or prior small bowel involvement. Patient's output significantly decreased yesterday compared to the prior day. IV fluids have been turned off which also may be contributing to the high output on the prior day. Patient continues to be extremely anxious and worried about being discharged although he seems extremely stable at this time. GI recommendations: - Continue antidiarrheal regimen including: cholestyramine 8 g twice a day, loperamide 4 mg every 6 hours, Lomotil 2 tablets every 6 hours, and Guar gum. - Monitor electrolytes and kidney function daily. Labs this morning without abnormalities. - Patient's output trending down. Increased IV and oral fluids may account for part of the increase. We will continue to monitor closely. Strict Ins and Outs. - Continue 6-mercaptopurine. - Encouraged patient to ambulate in the hallways multiple times daily as he is being monitored closely and if he does develop symptoms we can address them immediately. - Patient should sit up in chair or ambulate after meals for at least 2-3 hours to prevent reflux that may be causing his hoarseness. Thank you for involving us in this patient's care. We will continue to follow. Problems: VTE Prophylaxis: Sub-Q Heparin (Unfractionated) Resuscitation Status: CPR: Attempt Resuscitation Attending Statement: Patient seen and examined. Agree with assessment and plan as per Dr De León. Patient looks like he may be able to be d/c'd home tomorrow if remains stable. ALEXEI DE LEÓN DO Feb 23, 2017 10:54 Andreas Sharma MD Feb 23, 2017 16:56
--- NOTE | 2017-02-23 18:30 | PCM.PNMED ---
Subjective Date of Service Feb 23, 2017 Subjective David Longo is a 61-year-old man with past medical history significant for Crohn's disease for the last 25 years now status post ileostomy (January 27, 2017), coronary artery disease with MIs and 4 vessel bypass and stenting who presented to the [facility] emergency department on 02/16 via EMS due to a near syncopal episode. Assessment: Patient feels considerably better and looks considerably better. He states that he continues to have some weakness however he notes feeling progressively stronger as the days go by. He discussed the possibility of discharging home tomorrow, and the patient seems to accept this possibility. However his mother is very concerned about the pending discharge and pleads that we hold him for another 48 hours to test the efficacy of capsulized Guar gum versus liquid Guar gum. I had a long discussion with her this evening, after addressing all of her concerns we were only able to end the conversation with the possibility of talking about this more tomorrow. Events Overnight: No acute events overnight. ROS: Denies fever/chills, nausea/vomiting, headache, weakness, abdominal pain, chest pain, shortness of breath, increased swelling in hands or feet. Exam Vital Signs Vital Sign - Last Date Time Temp Pulse Resp B/P Pulse Ox O2 Delivery O2 Flow Rate FiO2 02/23/17 16:52 37.0 65 16 115/84 97 Room Air Intake and Output 02/22/17 02/22/17 02/23/17 Cumulative From/Thru 15:00 23:00 07:00 02/16/17 00:40 - 02/23/17 04:35 Intake Total 936 ml 250 ml 54648 ml Output Total 2040 ml 1600 ml 81268 ml Balance -1104 ml -1350 ml -6537 ml Intake Oral 936 ml 250 ml 9092 ml IV Total 69724 ml Output Urine Total 1540 ml 1000 ml 58861 ml Stool Total 500 ml 600 ml 7880 ml Emesis 0 ml # Voids 14 Exam General: No acute distress, well-developed, well-nourished HEENT: Normocephalic, atraumatic. External ears without defect. Pupils equal, round, and reactive to light and accommodation. Anicteric sclerae, moist conjunctivae. Cardiovascular: Regular rate and rhythm with no murmurs, rubs, or gallops appreciated Pulmonary: Clear to auscultation bilaterally with no crackles, wheezes, or rhonchi. Normal respiratory effort with no use of accessory muscles. Abdomen: Bowel tones decreased. Soft, nontender, nondistended. Ostomy present- ostomy bag and dark brown mush. Extremities: No clubbing, cyanosis, edema Skin: Normal temperature, turgor, and texture; no rash, ulcers, or subcutaneous nodules appreciated. Neurological: Cranial nerves grossly intact. Reflexes, coordination, and sensory function within normal limits. Normal muscle strength, tone, and bulk. Psychiatric: Normal mood and affect. Alert and oriented to person, place, and time IVs and Medications Medications Reviewed: Medications were reviewed in detail Medications High risk medications include: Ativan Lab and Diagnostics Result Diagram: 02/23/1724402/23/17244 Microbiology Blood cultures 2 no growth Assessment & Plan David Longo is a 61-year-old man with past medical history significant for Crohn's disease for the last 25 years now status post ileostomy (January 27, 2017), coronary artery disease with MIs and 4 vessel bypass and stenting who presented to the [facility] emergency department on 02/16 via EMS due to a near syncopal episode. Near syncopal episode, present on admission,Improved - Multifactorial, due to vasovagal response as well as orthostasis from patient' s severe dehydration due to high output ostomy - Fall risk - Ostomy putting out brown liquid 02/17 as compared to 02/16, green liquid, and previous to that yellow liquid. Returned to brown 02/18 High anion gap metabolic acidosis and concomitant non-anion gap metabolic acidosis, present on admission, resolved -Likely secondary to GI losses -Continue with aggressive IV fluid hydration -Dietary consultation obtained -Antidiarrheal medications restarted High output ileostomy, present on admission, improving. Patient had ileostomy placed on January 27. 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 - It is anticipated that output will reduce over time, and stools will become better formed with antidiarrheal medication, this is not been the case up to this point. - Continue aggressive IV fluid resuscitation - Antidiarrheal medications on board - Continue patient's fiber supplementation - Guar gum initiated in combination with other antidiarrheal medications, changed to capsules on 02/23 - GI consulted, increased cholestyramine to 8g twice a day, continue this dose increase if necessary. - Typical ostomy output should be no more than 600. - Patient has done well off IV fluids for the last 36 hours we will see how this is tolerated and monitor his electrolytes again tomorrow morning. Macrocytic anemia, present on admission, active - With an elevated RDW possibly due to multiple vitamin deficiencies given patient's Crohn's disease - Hemoglobin initially 12.0, dropped to 9.5 over a period of 8 hours. H&H has remained stable since that time. Likely dilutional. - Hemoglobin steadily increasing.r - B12 and folate panels show normal levels of vitamin B12 and folate. Chronic issues, present on admission, stable: Coronary artery disease status post CABG and stenting -Continue patient's outpatient medications Anxiety/insomnia -Continue outpatient lorazepam Social support -Player Piano Technician contacted to visit the patient, however patient does not want spiritual consults at this time. - I suggested to the patient that he would benefit from outpatient psych, for his depression to work through multiple issues which have occurred in the last 4.5 years. It appears that many of his current ailments can be attributed to his emotional distress over these recent events. At the moment he is unwilling to participate in any outpatient evaluation by psych, however he did state that he would think about it. Of note: Goals of care were discussed with the patient and his mother who was in the room on 02/17. Patient described frustrations with his current situation , including feeling helpless and discouraged at having to stay so much time in the hospital. He states that he was initially unwilling to go through the ileostomy procedure and had hoped for some complication such that he would not be subjected to the difficulties of post procedural life. He describes great frustration with trying to fill prescribed medications especially ostomy bags. He asked me if Spence was a " with dignity state" stating that he did not wish to continue medical treatment, except that he knows this would bring great sadness to his mother. He is not currently suicidal, however he is obviously depressed and frustrated with his current situation. Both him and his mother expressed concerns about early discharge. We discussed the possibility of SNF placement post hospital stay, however and his current depressed state he was not excited about this option. On 02/23 again discussed options for discharge and appears to discharge home is the best option for this patient this time. We will reassess tomorrow and discuss with the patient's mother. CODE STATUS: Full code Dispo: Patient may be discharged home tomorrow if he continues to do well off IV fluids. VTE Prophylaxis: Sub-Q Heparin (Unfractionated) Resuscitation Status: CPR: Attempt Resuscitation Attending Statement The patient was seen and examined together with Dr. Stevens on 02/23/2017 and I agree with the history, exam and plan as outlined in the note above. . Lew Stevens DO Feb 23, 2017 18:30 Sacha Mcclelland MD Feb 24, 2017 18:12
--- NOTE | 2017-02-23 19:26 | NUR ---
General No c/o pain or discomfort this shift. A&O X3. Mother present at the bedside, very active with care. Pt ambulates independently without issues. RA. Tele SR 60s. Trace edema to feet. BP 107/71. Uses the urinal. Ostomy site is patent. Draining soft BMs.
[2017-02-23] MEDS: LORazepam 2 mg Tablet PO SCH (22:09)
[2017-02-24] VITALS (8 sets, daily range): BP systolic 106–114; BP diastolic 66–77; PULSE 57–85; RESP 16–20; O2SAT 97–100
[2017-02-24 03:41] LABS: Mean Corpuscular Hemoglobin 37.2 pg (27.0-35.0); Mean Corpuscular Volume 105.3 fL (81-100)
[2017-02-24] MEDS: DiphenOXYlate-Atropine 2.5 mg-0.025 mg Tablet PO SCH ×4 (03:45→20:49)
--- NOTE | 2017-02-24 04:28 | NUR ---
Anxiety: Pt. appears mildly anxious throughout shift. Pt. very focussed on weight and fluid intake amount. Pt. also very anxious regarding stool consistency, however pt. agrees that stool through ileostomy is thickening and is improved from previous days. Scheduled Ativan administered once during shift. Comforted and reassured pt. multiple times during shift. Will continue to monitor.
[2017-02-24] MEDS: Heparin 5,000 Unit/mL Inj SUBQ SCH ×2 (08:30→15:42)
[2017-02-24] MEDS: Lidocaine Topical 5% Patch TOPICAL SCH (08:30)
[2017-02-24] MEDS: 0.9% Sodium Chloride 1,000 ML IV SCH ×2 (09:15→19:04)
[2017-02-24] MEDS: Cholestyramine Resin Powder 4 Gm Packet PO SCH ×2 (09:38→22:19)
--- NOTE | 2017-02-24 12:43 | PROG NOTE ---
[address] [address] PROGRESS NOTE PATIENT: ZOË KARIMI : 1955 MR#: [id number] ADMIT: 02/16/2017 JOB ID: [id number] DATE: 02/24/2017 SUBJECTIVE: Overall the patient remains stable. He is eating well. Stool has thickened up a little and he believes it may be a consequence of the quar gum addition. He has had in the last 24 hours 950 mL of ileostomy output. OBJECTIVE: Vital signs are stable. Blood pressure 106/71, pulse 61, breathing 16, temperature 36.7, 97% on room air. Historically there were no signs of any orthostatic changes in the last 24 hours. LABORATORIES: Hemoglobin 12, white count 6.9, platelets 210. Creatinine is 0.84, BUN 17, sodium 137, potassium 4.2, chloride 106, bicarb 15, glucose 92, calcium 8.7. ASSESSMENT AND RECOMMENDATIONS: A 61-year-old male with a remote history of Crohn's on 6-mercaptopurine. He had a diverting ileostomy following surgical intervention for complicated diverticulitis. He has had problems with high output ileostomy resulting in renal failure and a lengthy admission down at [facility]. So far, he appears quite stable here in the hospital with normal BUN and creatinine. No signs of orthostasis. He has noted some hoarseness to his voice and I again suggested that this could very easily be a consequence of some reflux. The patient is obviously spending much more time in bed than he normally would in his day-to-day activities (where he does not suffer from chronic reflux). I encouraged him to be upright for a good 3-4 hours after any oral intake. This would be especially important when he is turning in for bed at night. I would defer to the patient's primary hospitalist service as to whether he be discharged today. It would be quite reasonable, if he is discharged, to provide him access to [facility] for p.r.n. IV fluids and lab assessment should he have any developing symptoms that would be concerning for evolving dehydration. Otherwise, he will need to follow up with his surgeons at [facility] as planned for the eventual ileostomy takedown. COMMENT: This is a no-charge position visit. Today is the Sabbath. Please do not submit a physician charge for this particular note.
[2017-02-24] MEDS ORDERED: LOPE2CAP PO (14:01)
[2017-02-24] MEDS ORDERED: LOM PO (14:01)
[2017-02-24] MEDS ORDERED: QUE9 PO (14:01)
[2017-02-24] MEDS ORDERED: LIDO700A6 TOPICAL (14:01)
[2017-02-24] MEDS ORDERED: LORA2TAB PO (15:28)
--- NOTE | 2017-02-24 15:28 | NUR ---
Social Work Note: Continued Discharge Planning Data& Assessment: Pt was discussed in Multidisciplinary rounds today. Per MD pt is getting closer to being medically ready for discharge.Per RN, pt is anxious to discharge home and complete this hospitalization. MD states that pt is not appropriate for SNF or Home Health and pt would most likely discharge home with follow up with the outpt wound care clinic. Per RN, pt independent with self care and ambulation. MD does not have any concern for pt capacity for self care. No MD orders identified at this time. SW to continue to follow. Plan: Anticipated discharge home via POV when medically ready with follow up at the wound care clinic when medically ready for iliostomy care. No MD orders identified at this time. SW to continue to follow. ALIA Mcduffie
--- NOTE | 2017-02-24 15:44 | NUR ---
Ostomy/heparin/scripts/anxiety Ostomy output so far this shift 150cc, light brown in color, thick liquid consistency. Pt receiving scheduled Lomotil and imodium, and using guar gum capsules. Pt refuses heparin, stating he gets up enough and that it stings too badly. Pt and Mother received all DC prescriptions even though DC is not happening today. Via pts request and MD approval. Pt and Mother appeared anxious in the AM but appear calm at this time.
--- NOTE | 2017-02-24 18:22 | PCM.PNMED ---
Subjective Date of Service Feb 24, 2017 Subjective David Longo is a 61 -year-old gentleman with past medical history significant for Crohn's disease for the last 25 years now status post ileostomy (January 27, 2017), coronary artery disease with myocardial infarction and 4 vessel bypass and stenting who was admitted to [facility] on 02/16 for management of high output ostomy. Patient reported that he is feeling better and is more confident in current output from ostomy. Patient denied any difficulty eating, drinking, or urinating and is not lightheaded, dizzy, or expressing balance problems with ambulation. No significant overnight events. Exam Vital Signs Vital Sign - Last Date Time Temp Pulse Resp B/P Pulse Ox O2 Delivery O2 Flow Rate FiO2 02/24/17 16:29 37.2 63 16 107/66 100 Room Air Intake and Output 02/23/17 02/23/17 02/24/17 Cumulative From/Thru 15:00 23:00 07:00 02/16/17 00:40 - 02/24/17 06:20 Intake Total 1000 ml 300 ml 02016 ml Output Total 975 ml 1025 ml 75729 ml Balance 25 ml -725 ml -7237 ml Intake Oral 1000 ml 300 ml 64128 ml IV Total 23205 ml Output Urine Total 625 ml 975 ml 69466 ml Stool Total 350 ml 50 ml 8280 ml Emesis 0 ml # Voids 3 17 Exam General: No acute distress, well-developed, well-nourished, appropriately interactive HEENT: Normocephalic, atraumatic. External ears without defect. Pupils equal, round, and reactive to light and accommodation. Anicteric sclerae, moist conjunctivae, and no lid lag. Oropharynx free of erythema and cobble stoning with moist mucosa. Neck: Supple with full range of motion. No jugular venous distension. No bruits. No lymphadenopathy or thyromegaly. Cardiovascular: Regular rate and rhythm with no murmurs, rubs, or gallops appreciated Pulmonary: Clear to auscultation bilaterally with no crackles, wheezes, or rhonchi. Normal respiratory effort with no use of accessory muscles. Abdomen: Bowel tones present. Soft, nontender, nondistended. No hepatosplenomegaly or masses appreciated. Extremities: No clubbing, cyanosis, edema, or lymphadenopathy appreciated. Skin: Normal temperature, turgor, and texture; no rash, ulcers, or subcutaneous nodules appreciated. Neurological: Cranial nerves grossly intact. Normal muscle strength, tone, and bulk. Reflexes, coordination, and sensory function within normal limits. No known gait impairment. Psychiatric: Normal mood and affect. Alert and oriented to person, place, and time. IVs and Medications Medications Reviewed: Medications were reviewed in detail Lab and Diagnostics Result Diagram: 02/24/1732902/24/17329 Microbiology Blood cultures 2 no growth Assessment & Plan David Longo is a 61 -year-old gentleman with past medical history significant for Crohn's disease for the last 25 years now status post ileostomy (January 27, 2017), coronary artery disease with myocardial infarction and 4 vessel bypass and stenting who was admitted to [facility] on 02/16 for management of high output ostomy. Near syncopal episode, present on admission. Improved. - Multifactorial, due to vasovagal response as well as orthostasis from patient' s severe dehydration due to high output ostomy - Continuing to improve High output ileostomy, present on admission. Improving. - Patient had ileostomy placed on January 27. 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 - Steady improvement with therapy with cholestyramine, diphenoxylate-atropine, loperamide, high-fiber supplement, and guar gum Macrocytic anemia, present on admission. Stable to improving. - With an elevated RDW possibly due to multiple vitamin deficiencies given patient's Crohn's disease - Continue to monitor closely Coronary artery disease status post CABG and stenting, present on admission. Stable. -Continue clopidogrel Anxiety/insomnia, present on admission. Stable. -Continue outpatient lorazepam High anion gap metabolic acidosis and concomitant non-anion gap metabolic acidosis, present on admission. Resolved. -Likely secondary to GI losses Disposition: Patient scheduled to discharge home on 02/25. Prescriptions prepared and provided for patient on 02/24. . VTE Prophylaxis: Sub-Q Heparin (Unfractionated) Resuscitation Status: CPR: Attempt Resuscitation Sacha Mcclelland MD Feb 24, 2017 18:22
[2017-02-24] MEDS: LORazepam 2 mg Tablet PO SCH (20:49)
[2017-02-25] MEDS: Heparin 5,000 Unit/mL Inj SUBQ SCH ×2 (00:03→08:30)
[2017-02-25 02:34] VITALS: BP 114/73; PULSE 59; RESP 20; O2SAT 99
[2017-02-25] MEDS: DiphenOXYlate-Atropine 2.5 mg-0.025 mg Tablet PO SCH ×2 (02:43→10:37)
[2017-02-25] MEDS: 0.9% Sodium Chloride 1,000 ML IV SCH (02:46)
--- NOTE | 2017-02-25 04:31 | NUR ---
Ileostomy: 150mL light brown loose stool collected via ileostomy bag during shift. Stool appears to have thicker consistency than prior days, which pt. states feeling happy and relieved about. 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
[2017-02-25] MEDS: Cholestyramine Resin Powder 4 Gm Packet PO SCH (08:30)
[2017-02-25] MEDS: Lidocaine Topical 5% Patch TOPICAL SCH (10:36)
--- NOTE | 2017-02-25 11:37 | PROG NOTE ---
[address] [address] PROGRESS NOTE PATIENT: ZOË KARIMI : 1955 MR#: [id number] ADMIT: 02/16/2017 JOB ID: [id number] DATE: 02/25/2017 SUBJECTIVE: The patient remains stable. No labs this morning. Vitals look great. He had 450 cc stool recorded from yesterday. He thinks the addition of the has been quite helpful. He still has hoarse voice. We discussed the likelihood that this is related to some reflux brought on by the majority of his time being spent in the supine and semi-recumbent positions. OBJECTIVE: Vital signs stable as above. Patient conversational, in no distress. LABS: None this morning. ASSESSMENT AND RECOMMENDATIONS: A 61-year-old male with Crohn's and a diverting ileostomy for a complicated diverticulitis. He currently has no evidence of any ongoing concerns of high output ileostomy and seems to be responsive to the , Questran, Lomotil, Imodium combination. I have recommended a trial of [id number] Nexium or Prilosec at least once daily. I have already mentioned to him the importance of staying upright for 3-4 hours after any p.o. intake. I think it would be appropriate to monitor his basic metabolic panel once weekly and if he feels as though he is drifting towards dehydration to come into the MOC for a bag of IV fluids and lab assessment.
--- NOTE | 2017-02-25 12:04 | PCM.DIMED ---
Urban Gabriel DO 02/25/17 1204: Discharge Instructions Date of Service Feb 25, 2017 Dates of Hospitalization Feb 16, 2017 at 02:58 Discharge Diagnosis Discharge Diagnosis Near syncopal episode, present on admission. Improved. High output ileostomy, present on admission. Improving. Macrocytic anemia, present on admission. Stable to improving. Coronary artery disease status post CABG and stenting, present on admission. Stable. Anxiety/insomnia, present on admission. Stable. High anion gap metabolic acidosis and concomitant non-anion gap metabolic acidosis, present on admission. Resolved. . Medication Instructions Additional med instructions Please take your anti-diarrhea medications as directed; you may mix in Guar gum as needed if your stool appears to be more loose. Diet Discharge Diet: Other (You may want to eat smaller more frequent meals to allow your gut to not have digest any large meals in a single setting. The gut is able to extract more nutrients and water from a smaller meal, this could reduce your diarrhea and increase the functional nutrition you are getting.) Activity Discharge Activity: Limited until seen by PCP (As before be cautious of activities which can dislodge your colostomy bag) Call your provider Call your provider for: Fever or Chills, Shortness of breath, Bleeding, Chest pain, Vomitting, Excessive diarrhea, Weakness (unilateral), Other (dizziness or a feeling that you are going to faint) Patient Instructions Patient Instructions Please continue to take your blood pressure daily. If you begin to experience symptoms of dehydration please take your blood pressure at home, if your pressure is normal you could probably be fine with just increased oral intake of fluids. If you pressure is low or your (less than 90/60)symptoms continue to deteriorate please return to alert you primary care provider for further advice. Follow-up plan Please follow up closely with Dr. Burris Follow-up Provider: Gloria Burris MD Follow-up with PCP in: 1 week Sacha Mcclelland MD 02/25/17 1607: Discharge Instructions Attending's Statement The patient was seen and examined together with Dr. Gabriel on 02/25/2017 and I agree with the history, exam and plan as outlined in the note above. . Urban Gabriel DO Feb 25, 2017 12:04 Sacha Mcclelland MD Feb 25, 2017 16:07
[2017-02-25 12:37] VITALS: BP 110/71; PULSE 83; RESP 16; O2SAT 99
--- NOTE | 2017-02-25 13:15 | NUR ---
Social Work: Discharge Data: Pt is on day 9 of hospitalization. EMR reviewed. Pt discussed in multidisciplinary rounds. MD states pt ready for d/c today. MD denies need for HH for this pt and that he will follow up with wound care out pt. No need for IV fluids at d/c per MD. D/C orders are in, disposition is home. No d/c planning needs at this time. OFFBEARER will continue to follow if needs arise. Assessment: Pt who is independent at baseline, currently capable of self care. Plan: Pt will d/c home via POV today and will follow up with wound care outpt per MD. No d/c planning needs at this time. OFFBEARER will continue to follow if needs arise. ALIA Alvarez
--- NOTE | 2017-02-25 14:15 | NUR ---
Discharge to home VVS, up at bedside with SBA. Discharge packet including prescriptions reviewed in detail w/ pt. All belongings including pt's home medication supplies in care of pt. To waiting vehicle per w/c, accompanied by RN. Pt's mother driving pt to their shared home.
--- NOTE | 2017-02-25 17:38 | PCM.DC.MED ---
Discharge Summary Date of Service Feb 25, 2017 Dates of Hospitalization Date of Hospital Admission Feb 16, 2017 at 02:58 Date of Discharge: Feb 25, 2017 Providers: Admitting Physician: Desmond Jon MD Primary Care Physician: Rylie Attending Physician: Dewayne Dietz MD Diagnosis at Time of Discharge Diagnosis at Time of Discharge Near syncopal episode, present on admission. Improved. High output ileostomy, present on admission. Improving. Macrocytic anemia, present on admission. Stable to improving. Coronary artery disease status post CABG and stenting, present on admission. Stable. Anxiety/insomnia, present on admission. Stable. High anion gap metabolic acidosis and concomitant non-anion gap metabolic acidosis, present on admission. Resolved. . Consultations GI with Dr. Sharma Brief History Taken from History and Physical composed by Dr. Wsahington on 02/16/17 David Longo is a 61-year-old male with past medical history significant for Crohn's disease status post recent diverting ileostomy, coronary artery disease with MIs and 4 vessel bypass and stenting who presented to [facility] ED due to a near syncopal episode. Prior to this hospitalization patient has been hospitalized at [facility] 2 times over the last month. Initial hospitalization was for a perforated bowel secondary to abscess that he believes is due to his Crohn's disease. This is questionable as the patient also indicates that his Crohn's disease has been in remission over the last 8-10 years. It may be more likely that his abscess and perforated bowel or secondary to diverticulitis. At this time it is not imperative to know the inciting event and we are working on obtaining records. Subsequent to the perforation patient had a diverting ileostomy completed on 01/27/[address] Eber Brown ([phone]). Patient has had high output from ostomy consequently causing readmission to [facility] shortly after discharge. During his second hospitalization he was found to have renal failure with an elevated potassium in low magnesium and required urgent dialysis. Patient was then discharged on 02/15/2017 and moved to the [place] area so that his mother could care for him. Shortly after arrival at his mother's house he began to feel fatigued, thirsty, and lightheaded and attempted to hydrate with Pedialyte. Later that evening he was changed and his ostomy and had a vasovagal episode which prompted his presentation to the ED. Of note, the patient states that the plan, per Dr. Brown, is for contrast enema in approximately 3 weeks to evaluate for any further leakage and determine if he is appropriate for takedown of ostomy. Upon discharge from [facility] for high output ileostomy he was told to take cholestyramine 4 g twice a day, Lomotil 4 times a day, Imodium 4 times a day, and Guar gum twice a day. Prior to ileostomy and bowel perforation patient was maintained on 6-mercaptopurine for the last 8-10 years and was told he was in remission from his Crohn's. He had been following with Dr. Kelly, GI, but due to insurance he recently switched to physician in [facility]. His primary care providers Dr. Darryl Johnson whose phone number is [phone]. Today the patient is sitting up in bed and denies any dizziness or lightheadedness. He does feel weak and continually thirsty. Ostomy had a total of 650 mL out yesterday and today a subsequent 370 mL. Hospital Course David Longo is a 61 -year-old gentleman with past medical history significant for Crohn's disease for the last 25 years now status post ileostomy (January 27, 2017), coronary artery disease with myocardial infarction and 4 vessel bypass and stenting who was admitted to [facility] on 02/16 for management of high output ostomy. His output proved difficult to manage with net negative fluid balance and symptomatic hypotension early in his hospital course. We were eventually able to arrive upon a sustainable formula for controlling his ostomy output with Loperamide, Lomotil, cholestyramine, and Guar gum. Prior to DC the patient was further educated in management of his ostomy, and titrating his bowel regimen to achieve a consistent acceptable output. Near syncopal episode, present on admission. Resolved - Multifactorial, due to vasovagal response as well as orthostasis from patient' s severe dehydration due to high output ostomy - Patient was able to ambulate well in the hallway prior to DC High output ileostomy, present on admission. Improving. - Patient had ileostomy placed on January 27. Records from [facility] indicate that surgery was done in relation to diverticulitis fistula as opposed to Crohn's related. - Steady improvement with therapy with cholestyramine, diphenoxylate-atropine, loperamide, high-fiber supplement, and guar gum - Patient should expect 250-700 ml daily output - Significant component of anxiety about his course of care contributing to his ostomy management difficulties, this improved with discussion with a night nurse who had a middle or intermediate school principal ostomy Macrocytic anemia, present on admission. Stable to improving. - With an elevated RDW possibly due to multiple vitamin deficiencies given patient's Crohn's disease - Continue to monitor closely Coronary artery disease status post CABG and stenting, present on admission. Stable. -Continue clopidogrel Anxiety/insomnia, present on admission. Stable. -Continue outpatient lorazepam High anion gap metabolic acidosis and concomitant non-anion gap metabolic acidosis, present on admission. Resolved. -Likely secondary to GI losses . Exam Vital Signs (Last) Date Time Temp Pulse Resp B/P Pulse Ox O2 Delivery O2 Flow Rate FiO2 02/25/17 12:37 36.9 83 16 110/71 99 Room Air Exam Gen: A/O x3 pleasant cooperative gentleman in NAD Neck: Supple, non tender, no thyromegaly, no JVD HEENT: PERRL, EOMI, no scleral icterus, no conjunctival pallor CV: RRR, no murmurs rubs or gallops Resp: Lungs CTA BL, no wheezing rales or rhonchi Abd: Soft, ostomy with a moderate amount of brown semi-formed stool Extr: No clubbing cyanosis or edema Neuro: CN 2-12 grossly intact, no focal neurologic deficit Psych: Pleasant and appropriate mood and affect. Test 02/16/17 00:50 02/16/17 05:30 02/16/17 07:46 02/19/17 07:10 Prothrombin Time 10.3sec (8.1-12.5) Prothromb Time International Ratio 0.96ratio Activated Partial Thromboplast Time 22.1sec (22.8-33.0) Lactic Acid Level 0.2mmol/L (0.4-2.0) Lipase 28U/L (13-60) Procalcitonin 0.11ng/mL (0.00-0.08) Hold [place] Top Tube Received (Received) Urine Color Yellow (YELLOW) Urine Appearance Clear (CLEAR,HAZY) Urine pH 5.0 (5.0-8.0) Urine Specific [place] 1.015 (1.003-1.035) Urine Protein Negativemg/dL (NEG,TRACE) Urine Glucose (UA) Negativemg/dL (NEGATIVE) Urine Ketones Negativemg/dL (NEGATIVE) Urine Occult Blood Negative (NEGATIVE) Urine Nitrite Negative (NEGATIVE) Urine Bilirubin Negative (NEGATIVE) Urine Urobilinogen Normalmg/dL (NORMAL) Urine Leukocyte Esterase Negative (NEGATIVE) Urine RBC 0-2/hpf (0-2) Urine WBC 0-5/hpf (0-5) Urine Epithelial Cells Occasional/hpf (NONE-MOD) Urine Crystals None seen (NONE SEEN) Urine Bacteria Few/hpf (NONE-FEW) Urine Hyaline Casts >20/lpf (NONE) Urine Granular Casts Occasional (NONE SEEN) Urine Waxy Casts None seen (NONE SEEN) Urine Red Blood Cell Casts None seen (NONE SEEN) Urine White Blood Cell Casts None seen (NONE SEEN) Urine Mucus Present (None Seen) Urine Trichomonas None seen (NONE SEEN) Urine Yeast None (NONE SEEN) Urinalysis Comment None Urine Culture Reflexed Not indicated Vitamin B12 Level 444pg/mL (211-946) Folate 5.2ng/mL (>3.0) Neutrophils (%) (Auto) 56.7% (40-74) Lymphocytes (%) (Auto) 32.5% (14-46) Monocytes (%) (Auto) 7.6% (4-12) Eosinophils (%) (Auto) 2.8% (0-5) Basophils (%) (Auto) 0.4% (0-3) Test 02/23/17 02:45 02/24/17 03:30 Phosphorus Level 4.3mg/dL (2.5-4.9) Magnesium Level 2.0mg/dL (1.6-2.6) Total Bilirubin 0.4mg/dL (0.0-1.2) Aspartate Amino Transf (AST/SGOT) 12U/L (0-50) Alanine Aminotransferase (ALT/SGPT) 10U/L (0-44) Alkaline Phosphatase 77U/L (25-160) Total Protein 6.1g/dL (6.4-8.4) Albumin 3.7g/dL (3.4-5.0) White Blood Count 6.9th/mm3 (3.8-10.1) Red Blood Count 3.23mil/mm3 (4.40-5.80) Hemoglobin 12.0g/dL (13.8-17.2) Hematocrit 34.0% (41.0-50.0) Mean Corpuscular Volume 105.3fL (81-100) Mean Corpuscular Hemoglobin 37.2pg (27.0-35.0) Mean Corpuscular Hemoglobin Concent 35.3% (32.0-37.0) Red Cell Distribution Width 15.5% (12.3-15.4) Platelet Count 210bil/L (150-400) Sodium Level 137mEq/L (134-144) Potassium Level 4.2mEq/L (3.5-5.2) Chloride Level 106mEq/L (97-108) Carbon Dioxide Level 15mmol/L (18-29) Blood Urea Nitrogen 17mg/dL (6-24) Creatinine 0.84mg/dL (0.76-1.27) Estimat Glomerular Filtration Rate 99mL/min (>59) Glucose Level 92mg/dL (60-99) Calcium Level 8.7mg/dL (8.5-10.1) Microbiology Results Blood cultures 2 no growth Discharge Medications Discharge Medications Atorvastatin (Lipitor) 40 Mg Tablet 40 MG PO HS (Reported) Cholestyramine (Cholestyramine Packet) 4 Gm Packet 8 GM PO BID Prescribed by: DEWAYNE DIETZ MD Clopidogrel (Clopidogrel) 75 Mg Tablet 75 MG PO DAILY (Reported) Diphenoxylate/Atropine (Diphenoxylate-Atrop 2.5-0.025) 2.5 Mg Tablet 2 TABLET PO Q6H Prescribed by: DEWAYNE DIETZ MD Fructooligosaccharides/Polydex (Hyfiber with Fos Liquid) 12 Gram/30 Ml Liquid 12 GM PO BID (Reported) Lidocaine (Lidoderm) 700 Mg Adh..patch 1 PATCH TOPICAL DAILY Prescribed by: DEWAYNE DIETZ MD Loperamide (Loperamide) 2 Mg Capsule 4 MG PO Q6H Prescribed by: DEWAYNE DIETZ MD Lorazepam (Lorazepam) 2 Mg Tablet 2 MG PO HS (Reported) Mercaptopurine (Mercaptopurine) 50 Mg Tablet 100 MG PO DAILY (Reported) As needed Guar Gum (Guar Gum) 1 Gm Powder 1 GM PO BID PRN PRN For Bowel Movement (Reported ) Lorazepam (Lorazepam) 2 Mg Tablet 2 MG PO HS PRN PRN For Insomnia Prescribed by: DEWAYNE DIETZ MD Additional med instructions Please take your anti-diarrhea medications as directed; you may mix in Guar gum as needed if your stool appears to be more loose. Followup Plan Disposition: home Follow-up plan Please follow up closely with Dr. Burris Discharge Diet: Other (You may want to eat smaller more frequent meals to allow your gut to not have digest any large meals in a single setting. The gut is able to extract more nutrients and water from a smaller meal, this could reduce your diarrhea and increase the functional nutrition you are getting.) Discharge Activity: Limited until seen by PCP (As before be cautious of activities which can dislodge your colostomy bag) Patient Instructions Please continue to take your blood pressure daily. If you begin to experience symptoms of dehydration please take your blood pressure at home, if your pressure is normal you could probably be fine with just increased oral intake of fluids. If you pressure is low or your (less than 90/60)symptoms continue to deteriorate please return to alert you primary care provider for further advice. Follow-up Provider: Gloria Burris MD Follow-up with PCP in: 1 week Time spent Greater than 30 minutes was spent in preparation of discharge with greater than 50% of that time dedicated to patient counseling and coordination of care. . Attending Statement The patient was seen and examined together with Dr. Gabriel on 02/25/2017 and I agree with the history, exam and plan as outlined in the note above. . copies to: Gloria Burris MD, David E DO Feb 25, 2017 17:38 Dewayne Dietz MD Feb 26, 2017 07:35
== END 2017-02-25 14:46 | disposition home or self-care (01) | DRG 641 ==
LOC: SED 00:25 → EDBD 00:25 → OBSVTOIN 02:58 → PCC 02:58 → INTOOBSV 02:58
PROVIDERS: ADMIT Hospitalist; ATTEND Hospitalist
DX: E86.0 Dehydration (principal); E87.2 Acidosis; K50.00 Crohn's disease of small intestine without complications; Z93.2 Ileostomy status; F41.8 Other specified anxiety disorders; I25.10 Atherosclerotic heart disease of native coronary artery without angina pectoris; Z95.1 Presence of aortocoronary bypass graft; D53.9 Nutritional anemia, unspecified; F41.9 Anxiety disorder, unspecified; I25.2 Old myocardial infarction; R55 Syncope and collapse